=== PATIENT | female | born 1950 | race Caucasian/White ===

== ENCOUNTER 2025-03-10 01:52 | Inpatient (IN) | payer MEDICARE, OTHER, SELFPAY ==
--- OUTSIDE RECORDS SUMMARY | 2022-09-22 12:33 | XMS_ITS | Encounter Summary ---
Author Organization [facility] Address [address] [place] [address] Phone Care Team Providers Care Marketing Director Assisted Living Name Role Phone Ervin Cai MD Primary Care Pr ovider Encounter Details Date Type Department Care Team (Late st Contact Info) Description 09/22/2022 12:33 PM EDT Hospital Encounter [facility] [address] [place] [id number] Clarita Limon CNP [address] [place] [id number] [email or web address] Social History Tobacco Use Types Packs/Day Years Used Date Smoking Tobacco: Former Smokeless Tobacco: Never Alcohol Use Standard Drinks/Week Comments Yes 0 (1 standard drink = 0.6 oz pur e alcohol) Education Answer Date Recorded Are you interested in more education? Not on perla e 10/23/2022 Are you concerned about learning? Not on file 10/23/2022 No 10/23/2022 No 10/23/2022 Digital Access Answer Date Recorded No 11/23/2022 No 11/23/2022 Reliable internet access at home? Not on file 11/23/2022 Device with a working camera? Not on file Comments Unknown Sex and Gender Information Value Date Recorded Sex Assigned at Not on file Legal Sex Female 10:16 AM EST Gender Identity Not on file Sexual Orientation Not on file documented as of this encounter Plan of Treatment Upcoming Encounters Date Type Department Care Team (Late st Contact Info) Description 05/20/2025 10:00 AM EST Office Visit [facility] Rheumatology [address] [place] [address] Nidhi Valdez MD [address] [facility], [address] [place] [address] [email or web address] documented as of this encounter Procedures Procedure Name Priority Date/Time Associated Diagnosis Comments XR ANKLE 3 OR MORE VIEWS (LEFT) Urgent/patient waiting 09/22/2022 12:41 PM EDT Sprain of unspecified ligament of left ankle, initial encounter documented in this encounter Results * XR ANKLE 3 OR MORE VIEWS (LEFT) (09/22/2022 12:41 PM EDT) Anatomical Region Laterality Modality Ankle Left Computed Radiogr aphy 09/22/2022 12:4 7 PM EDT Impressions 09/22/2022 12:48 PM EDT No fracture or dislocation. Narrative 09/22/2022 12:48 PM EDT XR ANKLE 3 OR MORE VIEWS (LEFT) COMPARISON: None. FINDINGS: No fracture. Well-corticated osseous fragment along the lateral malleolus may be sequela from prior injury. Normal alignment. Symmetric ankle mortise. Normal joint spaces. No ankle effusion. Soft tissue swelling overlying the lateral malleolus. Procedure Note Brittaney Espinosa MD - 09/22/2022 XR ANKLE 3 OR MORE VIEWS (LEFT) COMPARISON: None. FINDINGS: No fracture. Well-corticated osseous fragment along the lateral malleolusmay be sequela from prior injury. Normal alignment. Symmetric anklemortise. Normal joint spaces. No ankle effusion. Soft tissue swellingoverlying the lateral malleolus. IMPRESSION: No fracture or dislocation. Clarita Limon HUMAN RESOURCES ASSISTANT MANAGER IMG XR LOWER EXTREMITY Karla l Result documented in this encounter Visit Diagnoses Not on filedocumented in this encounter Care Teams Marketing Director Assisted Living Relationship Specialty Start Date End Date Ervin Cai MD PCP - General Family Medicine 09/22/22 08/27/24 documented as of this encounter Additional Source Comments The information contained in this document represents components of the legal health record. It is not the complete legal health record.[facility]
[2025-03-10] VITALS (12 sets, daily range): BP systolic 113–172; BP diastolic 62–97; PULSE 81–115; RESP 14–23; TEMP 36.6–36.8; O2SAT 95–98; BMI 30.3
--- NOTE | ~2025-03-10 | CT_ITS ---
CLINICAL HISTORY: Fall with Head strike CT cervical spine without contrast Comparison: None provided Findings: Normal vertebral body alignment. There is multiple level degenerative disc, facet, and uncovertebral joint change. No acute fractures or dislocations. Visualized intracranial contents are unremarkable. Soft tissues of the neck are normal. Lung apices are clear. IMPRESSION: No acute findings. This document has been electronically signed by: Pio Charles MD on 03/10/2025 03:41:12
--- NOTE | ~2025-03-10 | CT_ITS ---
CLINICAL HISTORY: Fall w Head Strike and Lac CT head without contrast Comparison: None provided Findings: No intra-axial mass, midline shift, hydrocephalus, or acute hemorrhage. No significant atrophy-like change or white matter disease. The visualized paranasal sinuses and mastoid air cells are normal. The orbits are unremarkable. There is no acute fracture. IMPRESSION: 1. No acute intracranial findings. This document has been electronically signed by: Pio Charles MD on 03/10/2025 03:41:51
--- NOTE | 2025-03-10 01:55 | ECG_ITS ---
Test Reason : FALL Blood Pressure : */* mmHG Vent. Rate : 82 BPM Atrial Rate : 82 BPM P-R Int : 138 ms QRS Dur : 84 ms QT Int : 406 ms P-R-T Axes : 28 -11 9 degrees QTcB Int : 474 ms Normal sinus rhythm Possible Anterior infarct , age undetermined Abnormal ECG No previous ECGs available Referred By: Generic ED Physician Electronically Signed By: ESPERANZA ZAMAN MD
--- NOTE | 2025-03-10 02:15 | ED_ITS ---
HPI - Fall General Chief Complaint: Fall Stated Complaint: Fall with headstrike Time Seen by Provider: 03/10/25 01:59 Source: patient, family and EMS Mode of arrival: EMS Limitations: no limitations History of Present Illness ED Provider: Rex SANHDU HPI Narrative: The patient is a 74-year-old female presenting to the ED via EMS for evaluation of a fall with head strike. The patient reports she went out for her 's birthday yesterday evening, admits to drinking some alcohol but denies other substance use, patient returned home without complication and went to bed, patient reports developing a sharp stabbing muscle cramp in her left leg which woke her up, patient reports feeling associated nausea and got up quickly out of bed to go to the bathroom. Patient reports she next remembers her waking up on the floor stating he was calling an ambulance. The patient's reports he heard the patient fall to the ground, went to her side and found that she was bleeding, sat the patient up at which time the patient has suffered a syncopal episode with snoring respirations. The patient's has been lowered her back to the ground and activated EMS. The patient reportedly was awake and alert by time of EMS arrival. The patient denies any headache, dizziness, focal neurologic deficit, chest pain, shortness of breath, abdominal pain, or other acute somatic complaint prior to going to bed. The patient reports since the fall she has persistent nausea but without vomiting. The patient denies anticoagulation or other recent fall or blunt head trauma. Related Data Allergies Allergy/AdvReac Type Severity Reaction Status Date / Time lisinopril Allergy Cough Verified 03/10/25 02:09 Review of Systems 2 Review of Systems: Yes all other systems are reviewed and are negative PMFSH Social History Social History Alcohol intake: current Alcohol intake frequency: 0-2 drinks per day Smoked in Last 30 Days: No Use of substances other than those prescribed or required for medical reasons: No Advance Directives: Yes Advance Directives Information Provided: Yes Advance Directives on File: No Physical Exam 2 Exam: Exam: CONSTITUTIONAL: The patient appears non-toxic, well nourished and in no acute distress. Vital signs as documented. HEAD: There is a 4 cm laceration noted to the left occiput, with mild capillary bleeding, head is otherwise atraumatic, normocephalic. EYES: EOMs grossly intact, pupils equal, conjunctiva clear, no exudate. ENT: Nares patent, no discharge. Airway patent, no audible stridor, visible mucosa is pink and moist without noted lesions. NECK: Trachea is midline, no obvious masses or gross abnormalities. CHEST: Symmetric movement, normal appearance. LUNGS: LS present and CTAB, no w/r/r. Non-labored work of breathing. CARDIAC: Regular Rhythm, S1/S2 appreciated, no murmurs, rubs or gallops. ABDOMEN: Abdomen soft and non-tender x4 quadrants, no palpable masses or organomegaly. : Deferred. EXTREMITIES: Normal tone, moves all extremities spontaneously without reported pain. No obvious acute injury or deformity noted. NEURO: Alert and oriented x3, CN II-XII appear grossly intact. Cerebellar Functioning grossly intact. No obvious sensory or motor deficits. Speech clear and appropriate. PSYCH: normal affect, appropriate eye contact, fluid speech, with appropriate response to questioning. No reported suicidality or homicidality. SKIN: Warm, dry, color appropriate, normal turgor. No rashes noted. Vital Signs: Vital Signs: Last Vital Signs Pulse 81 03/10/25 02:09 Resp 17 03/10/25 02:09 BP 113/63 03/10/25 02:09 Pulse Ox 97 03/10/25 02:09 O2 Del Method Room Air 03/10/25 02:09 BMI result Body Mass Index 30.3 Course Reevaluation(s) Reevaluation #1: DR. Cerna's Progress note: signed out to me for disposition this is a 74-year-old female came in after had 2 separate syncopal episode witnessed by her , patient sustained scalp laceration has been repaired by PHOEBE Goodman, after discussing with the patient and the best to do is to admit for cardiac monitoring and workup for syncope. Time: 04:45 Medications Administered Generic Name Dose Route Start Last Admin Trade Name Freq PRN Reason Stop Dose Admin Lactated Ringer's 1,000 mls @ 999 mls/hr 03/10/25 04:15 03/10/25 04:30 Lr IV 03/10/25 05:15 999 mls/hr .Q1H1M KALEB Administration Discontinued Medications Generic Name Dose Route Start Last Admin Trade Name Freq PRN Reason Stop Dose Admin Sodium Chloride 1,000 mls @ 999 mls/hr 03/10/25 02:30 03/10/25 04:03 Ns IV 03/10/25 03:30 Infused .Q1H1M KALEB Infusion Lidocaine/Epinephrine 10 ml 03/10/25 03:46 03/10/25 04:30 Lidocaine Hcl 1%/Epi 1:100,000 10 Ml Vial INFILTRATI 03/10/25 03:47 10 ml ONCE ONE Administration Ondansetron HCl 4 mg 03/10/25 02:24 03/10/25 03:06 Ondansetron Hcl 4 Mg/2 Ml Vial IVPUSH 03/10/25 02:25 4 mg ONCE ONE Administration Ondansetron HCl 4 mg 03/10/25 04:07 03/10/25 04:30 Ondansetron Hcl 4 Mg/2 Ml Vial IVPUSH 03/10/25 04:08 4 mg ONCE ONE Administration Potassium Chloride 40 meq 03/10/25 04:07 03/10/25 04:29 Potassium Chloride Er 20 Meq Tab.Er.Prt PO 03/10/25 04:08 40 meq ONCE ONE Administration Procedures Laceration Laceration 1: Site: scalp Side (If applicable): right (Occipital) Size (cm): 4 Description: linear and clean Depth: simple, single layer Local Anesthetic: lidocaine 1% and with epi Amount of anesthesia used (mL): 6 Pre-repair: wound explored and deep structures intact Skin layer closed with: phuong Number of closing items:: 7 Technique: phuong Medical Decision Making Medical Decision Making MDM Narrative: 2:26 AM 03/10/2025 (Eligio SANDHU): The patient is a 74-year-old female presenting to the ED via EMS for evaluation of a fall with head strike. The patient reports she went out for her 's birthday yesterday evening, admits to drinking some alcohol but denies other substance use, patient returned home without complication and went to bed, patient reports developing a sharp stabbing muscle cramp in her left leg which woke her up, patient reports feeling associated nausea and got up quickly out of bed to go to the bathroom. Patient reports she next remembers her waking up on the floor stating he was calling an ambulance. The patient's reports he heard the patient fall to the ground, went to her side and found that she was bleeding, sat the patient up at which time the patient has suffered a syncopal episode with snoring respirations. The patient's has been lowered her back to the ground and activated EMS. The patient reportedly was awake and alert by time of EMS arrival. The patient denies any headache, dizziness, focal neurologic deficit, chest pain, shortness of breath, abdominal pain, or other acute somatic complaint prior to going to bed. The patient reports since the fall she has persistent nausea but without vomiting. The patient denies anticoagulation or other recent fall or blunt head trauma. Patient was found to have a 4 cm laceration to the left occiput, with mild capillary bleeding, no other open injury. There is no midline spinous process tenderness, crepitus, or step-off, neck demonstrates full nonpainful range of motion. No other acute findings. The patient's EKG shows no acute ischemia, we will obtain basic lab workup, cardiac workup, CT head and neck, and urinalysis. We will treat ongoing nausea with Zofran. 3:44 AM 03/10/2025 (Eligio SANDHU): Patient's CT head and neck is negative for acute pathology, laboratory evaluation shows no leukocytosis or significant anemia. The patient appears dehydrated with BUN 35, we will give additional IV fluid. The patient's potassium is also slightly low at 3.0, we will replete orally. Patient's laceration will be repaired with phuong. Repeat troponin will be obtained at 05:00. Patient's case will be signed out to Dr. Cerna. Admission/Observation Consideration of admission/observation: Escalation of care including admission/observation considered Lab Data 03/10/25 02:55 03/10/25 02:55 Labs: Lab Results 03/10/25 Range/Units 02:55 WBC 7.0 (4.8-10.8) X10*3/uL RBC 3.09 L (4.20-5.50) X10*6/uL Hgb 10.8 L (12.0-16.0) g/dl Hct 30.3 L (37.0-47.0) % MCV 98.1 H (80.0-98.0) fL MCH 35.0 H (27.0-33.0) pg MCHC 35.6 H (31.0-35.0) g/dl RDW 12.8 (11.0-16.0) % Plt Count 261 (160-400) X10*3/uL MPV 9.2 L (9.4-12.3) fL Immature Gran % (Auto) 0.4 (0.0-0.4) % Neut % (Auto) 62.5 (45-73) % Lymph % (Auto) 28.3 (20-40) % Fisher % (Auto) 7.0 (2-11) % Eos % (Auto) 1.4 (0-4) % Baso % (Auto) 0.4 (0-2) % Lymph # (Auto) 2.0 (1.2-4.9) X10*3/uL Fisher # (Auto) 0.5 (0.1-1.2) X10*3/uL Eos # (Auto) 0.1 (0.0-0.4) X10*3/uL Baso # (Auto) 0.0 (0.0-0.2) X10*3/uL Abs Immat Gran (auto) 0.03 (0.00-0.03) X10*3/uL Absolute Neuts (auto) 4.4 (2.0-8.3) x10*3/uL Absolute Nucleated RBC 0.000 (0.0-0.012) X10*3/uL Nucleated RBC % (auto) 0.0 (0.0-0.2) /100WBC PT 10.2 L (10.9-12.4) SEC INR 0.9 (0.9-1.1) Sodium 137 (135-145) mmol/L Potassium 3.0 L (3.3-5.1) mmol/L Chloride 102 (96-108) mmol/L Carbon Dioxide 21 L (22-29) mmol/L Anion Gap 17 (12-20) BUN 35 H (9-16) mg/dL Creatinine 1.33 (0.5-1.4) mg/dL Estim Creat Clear Calc 38.8 Estimated GFR 39 Random Glucose 98 (60-115) mg/dL Calcium 9.5 (8.4-10.2) mg/dL Total Bilirubin 0.2 (0.0-1.0) mg/dL AST 33 H (5-31) U/L ALT 37 H (0-31) U/L Alkaline Phosphatase 65 (39-117) U/L Troponin I High Sens < 2.7 (<3.5-17.0) ng/L Total Protein 6.9 (6.5-8.0) g/dL Albumin 4.2 (3.5-5.0) g/dL Independent Interpretation I performed an independent interpretation of an: EKG (EKG shows sinus rhythm with a rate of 82, no evidence of acute ischemia, no ST elevation, no ectopy. QTC 474. No old for comparison.) Radiology Impression Discussion of test interpretation with radiology: I have reviewed the radiologist's reading. Radiologist Impression: CLINICAL HISTORY: Fall with Head strike CT cervical spine without contrast Comparison: None provided Findings: Normal vertebral body alignment. There is multiple level degenerative disc, facet, and uncovertebral joint change. No acute fractures or dislocations. Visualized intracranial contents are unremarkable. Soft tissues of the neck are normal. Lung apices are clear. IMPRESSION: No acute findings. This document has been electronically signed by: Pio Charles MD on 03/10/2025 03:41:12 CLINICAL HISTORY: Fall w Head Strike and Lac CT head without contrast Comparison: None provided Findings: No intra-axial mass, midline shift, hydrocephalus, or acute hemorrhage. No significant atrophy-like change or white matter disease. The visualized paranasal sinuses and mastoid air cells are normal. The orbits are unremarkable. There is no acute fracture. IMPRESSION: 1. No acute intracranial findings. This document has been electronically signed by: Pio Charles MD on 03/10/2025 03:41:51 External Record Review External record reviewed: Outpatient record (No previous visits) Discharge Plan Discharge Clinical Impression: Concussion with loss of consciousness Qualifiers: Encounter type: initial encounter Qualified Code(s): S06.0X9A - Concussion with loss of consciousness of unspecified duration, initial encounter Syncope Qualifiers: Syncope type: unspecified Qualified Code(s): R55 - Syncope and collapse Laceration of scalp Qualifiers: Encounter type: initial encounter Qualified Code(s): S01.01XA - Laceration without foreign body of scalp, initial encounter Patient Disposition: Admitted As Inpatient Additional Instructions: Thank you for choosing [facility] for your care today. Based on your laboratory evaluation, your fainting episode this evening may have been secondary to dehydration. Thankfully your CT head and neck showed no evidence of any skull fracture, cervical spine fracture, or intracranial bleeding. Your evaluation showed no evidence of any acute cardiac, infectious, metabolic, renal, neurologic, or other dangerous cause for your fainting episode. Your fall today did result in a laceration of your scalp. The laceration was repaired with nonabsorbable phuong which will need to be removed in 5-7 days. Please return to the emergency department, go to a local urgent care, or follow- up with your primary care provider for removal of sutures. You may apply bacitracin to the laceration twice daily for the first 2-3 days. Then please keep the area clean and dry, but uncovered and exposed to the air to allow the laceration to heal. While it is perfectly acceptable to allow water to run over the phuong while showering, please do not swim, or submerge the laceration in standing water until the phuong are removed. You may take alternating (staggered) doses of ibuprofen 600mg and Tylenol 1000mg every 4 hours as needed for any additional pain. You can apply ice for 20 minutes every hour to reduce swelling. Please return to the emergency department if you develop any uncontrollable bleeding, re-opening of your wound, redness advancing >1-2 cm away from your wound, or white milky discharge from your wound. Please also return if you experience any other new or worsening symptoms or concerns. Your presentation today is also concerning for a possible concussion. A concussion is a bruise to your brain which may cause nausea, vomiting, headache, and difficulty concentrating/focusing. Similar to any other bruising, you must rest the injured area to prevent recurrent symptoms, reinjury, or other complications. In order to rest your brain, please avoid use of electronics such as cell phones, iPads, or TVs. Please avoid highly complex mental tasks/projects that require intense focus or concentration, and please avoid strenuous physical activity. Once your symptoms have resolved, you may slowly increase your activity level. If symptoms return please discontinue the activity which caused the recurrence of symptoms for 48 hours, before again attempting the same activity. You may not participate in any activities that are a high risk for recurrent head injury until you've returned to your baseline activity level without recurrence of your symptoms, plus one additional week. Please follow up with your primary care physician for re-evaluation, additional management of your symptoms, return to activity clearance, and continued preventative care. If you do not have a primary care physician, please call the [facility] at [phone] to establish a new primary care physician. While waiting to establish your new primary care physician, you can call our [facility] at [phone] for non-emergency needs. Print Language: Armenian
--- OUTSIDE RECORDS SUMMARY | 2025-03-10 02:57 | XMS_ITS | Clinical Summary ---
Author Organization [facility] Address [address] [place] [address] Care Team Providers Care Hand Blocker Name Role Phone Ervin Cai MD Primary Care Pr ovider Allergies Active Allergy Reactions Criticality Noted Date Comments Amlodipine 02/08/2024 Medications Medication Sig Dispensed Refills Start Date End Date Status alendronate (FOSAMAX) tablet 70 mg Take 1 tablet (70 mg total) by mouth every 7 days. Take with water on empty stomach/Nothing by mouth and do not lie down for next 30 minutes 0 Active losartan (COZAAR) 100 MG tablet Take 1 tablet (100 mg total) by mouth daily. 0 Active simvastatin (ZOCOR) tablet 40 mg Take 1 tablet (40 mg total) by mouth every night at bedtime. 0 Active omeprazole (PriLOSEC) 20 MG capsule Take 1 capsule (20 mg total) by mouth daily. 0 Active chlorthalidone (HYGROTON) 25 MG tablet Take 1 tablet (25 mg total) by mouth daily. 0 Active folic acid (FOLVITE) tablet 1 mg Take 1 tablet (1 mg total) by mouth daily. 90 tablet 0 02/08/2024 Active Social History Tobacco Use Types Packs/Day Years Used Date Smoking Tobacco: Former Cigarettes Smokeless Tobacco: Never Alcohol Use Standard Drinks/Week Comments Yes 0 (1 standard drink = 0.6 oz pur e alcohol) 1-2 glasses of wine nightly Sex and Gender Information Value Date Recorded Sex Assigned at Not on file Gender Identity Not on file Sexual Orientation Not on file Job Start Date Occupation Industry Not on file Not on file Not on file Last Filed Vital Signs Vital Sign Reading Time Taken Comments Blood Pressure 138/75 02/08/2024 9:50 AM EDT Pulse 91 02/08/2024 9:50 AM EDT Temperature 37.2 C (98.9 F) 02/08/2024 9:50 AM EDT Respiratory Rate - - Oxygen Saturation 99% 02/08/2024 9:50 AM EDT Inhaled Oxygen Concentration - - Weight 79.8 kg (176 lb) 02/08/2024 9:50 AM EDT Height - - Body Mass Index - - Plan of Treatment Health Maintenance Due Date Last Done Comments Hepatitis C Screening 1949 Depression Screening 1961 Preventative Health Evaluation 10/28/1967 Colon Cancer Screening (Colonoscopy) 1994 Fall Risk Assessment 2014 Osteoporosis Screening (DEXA Scan) 2014 RSV Adult > 60+ Yrs or (1 - 1-dose 75+ series) 2024 COVID-19 Vaccine ( season) 2025 03/28/2023, 01/29/2022, 04/17/2021, Additional history exists Influenza Vaccine (#1) 2025 , 03/26/2022, 03/04/2021, Additional history exists DTap / Tdap / Td (3 - Td or Tdap) 03/29/2032 03/29/2022, 10/08/2011, 04/04/2006 Pneumococcal Vaccine Completed 07/05/2017, 06/24/2016, 04/09/2016 Shingrix-Zoster Vaccine Completed 12/03/2021, 10/03 Hepatitis B Vaccines Aged Out No long er eligible based on patient's age to complete this topic RSV Ped < 20 months Aged Out No longe r eligible based on patient's age to complete this topic Care Teams Hand Blocker Relationship Specialty Start Date End Date Ervin Cai MD [address] [place] [address] PCP - General 12/14/23
--- OUTSIDE RECORDS SUMMARY | 2025-03-10 02:58 | XMS_ITS | Encounter Summary ---
Author Organization [facility] Address [address] [place] [address] [address] [place] [address] Phone Care Team Providers Care Tower Cleaner Name Role Phone Ervin Cai MD Primary Care Pr ovider Reason for Visit * Reason Onset Date Comments cortisone shot 01/10/2025 Encounter Details Date Type Department Care Team (Late st Contact Info) Description 01/10/2025 Telephone [employer] [facility] Rheumatology [address] [place] [address] Nidhi Valdez MD [address] [facility], [address] [place] [address] [email or web address] cortisone shot Social History Tobacco Use Types Packs/Day Years Used Date Smoking Tobacco: Former Smokeless Tobacco: Never Education Answer Date Recorded Are you interested [...] on file documented as of this encounter Progress Notes * Latisha Ovalles RN - 01/11/2025 9:39 AM EDT Yes, please offer appt today with Dr Victor. Thanks. * Patricia Salgado - 01/10/2025 11:48 AM EDT PT is requesting call back to set up a cortisone shot. Please advise. Central Support Statistician Applied (Please do not reply to this user; this inbox is not monitored.) Thank you. documented in this encounter Plan of Treatment Upcoming Encounters Date Type Department Care Team (Late st Contact Info) Description 05/20/2025 10:00 AM EST Office Visit [facility] Rheumatology [address] [place] [address] [place] [address] Nidhi Valdez MD [address] [place] [address], [address] [place] [address] [email or web address] documented as of this encounter Visit Diagnoses Not on filedocumented in this encounter Care Teams Tower Cleaner Relationship Specialty Start Date End Date Ervin Cai MD PCP - General Family Medicine 08/28/24 documented as of this encounter Additional Source Comments The information contained in this document represents components of the legal health record. It is not the complete legal health record.[facility]
--- OUTSIDE RECORDS SUMMARY | 2025-03-10 02:58 | XMS_ITS | Clinical Summary ---
Author Organization [facility] Address [address] [place] [address] Care Team Providers Care Air Pollution Specialist Name Role Phone Ervin Cai MD Primary Care Pr ovider Allergies Active Allergy Reactions Criticality Noted Date Comments Amlodipine Swelling Medium 06/13/2019 Lisinopril Cough High 06/13/2019 Medications alendronate (FOSAMAX) 70 mg tablet Take 1 tablet (70 mg total) by mouth every 7 (seven) days. 4 Active chlorthalidone (HYGROTON) 25 mg tabletIndication s:Primary hypertension Take 1 tablet (25 mg total) by mouth 1 (one) time each day. 90 each 1 5 025 Active losartan (COZAAR) 100 mg tabletIndication s:Primary hypertension Take 1 tablet (100 mg total) by mouth 1 (one) time each day. 90 tablet 1 5 Active omeprazole (PriLOSEC) [address] Robert ns:Gastroesophag eal reflux disease without esophagitis Take 1 capsule (20 mg total) by mouth 2 (two) times a day. 180 capsule 1 5 Active simvastatin (ZOCOR) 40 mg tabletIndication s:Hypercholester olemia Take 1 tablet (40 mg total) by mouth at bedtime. 90 tablet 1 5 Active polyethylene glycol (Golytely) 236-22.74-6.74 -5.86 gram solution Take 4L by mouth once for one dose. May substitue any PEG. Starting at 6PM the night before your procedure drink 1 8oz glasses at your own pace until you complete half of the gallon. Finish 2nd half of the gallon 5 hours before your procedure. 4000 mL 5 Active bisacodyL (DULCOLAX) 5 mg EC tablet Take 2 tablets by mouth right before beginning bowel prep. See instructions provided by the office 2 tablet 5 Active Lactobacillus acidophilus 10 billion cell capsule Take by mouth. Activ e VITAMIN B COMPLEX ORAL Take 1 capsule by mouth daily. Active calcium carbonate-vitami n D3 600 mg-25 mcg (1,000 unit) capsule Take by mouth. Activ e melatonin 10 mg capsule Take by mouth daily. 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 well controlled. Continue lifestyle mgt. Will update labs Orders: Hemoglobin A1c; Future Pneumothorax after biopsy 06/08/2024 Overview (06/08/2024): S/p chest tube insertion 06/29/2016 Insomnia 06/08/2024 Age-related osteoporosis wit hout current pathological fracture 06/08/2024 Assessment & Plan (12/06/2024 11:50 AM EDT): Continue daily ca/vitamin D supplement Continue alendronate 75mg weekly and endocrinology follow up Primary osteoarthritis of both knees 06/08/2024 Assessment & Plan (12/06/2024 11:50 AM EDT): Continue Rheumatology follow up at [facility]. See HPI Mass of left lung 06/08/2024 Overview (06/08/2024): Noted on CT of the abdomen, 04/19/2016. Referred her to CT surgery ( Dr. 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 Repeat CT scan 11/2016 with no residual or new mass Liver hemangioma 06/08/2024 Hypercholesterolemia 06/08/2024 Assessment & Plan (12/06/2024 11:50 AM EDT): Stable. Will update labs Orders: simvastatin (ZOCOR) 40 mg tablet; Take 1 tablet (40 mg total) by mouth at bedtime. Lipid panel with reflex to direct LDL; Future Hepatic steatosis 06/08/2024 Assessment & Plan (12/06/2024 11:50 AM EDT): Orders: MR Abdomen wo and w Contrast; Future Hepatic cyst 06/08/2024 Assessment & Plan (12/06/2024 11:50 AM EDT): Last MRI results are as above. Will update MRI per recommendations Orders: MR Abdomen wo and w Contrast; Future HTN (hypertension) 06/08/2024 Assessment & Plan (12/06/2024 11:50 AM EDT): Well controlled. Continue current meds Orders: chlorthalidone (HYGROTON) 25 mg tablet; Take 1 tablet (25 mg total) by mouth 1 (one) time each day. losartan (COZAAR) 100 mg tablet; Take 1 tablet (100 mg total) by mouth 1 (one) time each day. Elevated ferritin 06/08/2024 DJD (degenerative joint disease) of cervical spi ne 06/08/2024 Degenerative joint disease (DJD) of lumbar spine 06/08/2024 Compression fracture of L1 l umbar vertebra (CMS/HCC V24, CMS/HCC V28) 06/08/2024 GERD (gastroesophageal reflux disease) Assessment & Plan (12/06/2024 11:50 AM EDT): Stable. Continue omeprazole Orders: omeprazole (PriLOSEC) [address] capsule; Take 1 capsule (20 mg total) by mouth 2 (two) times a day. Anemia 06/08/2024 Bilateral nephrolithiasis 06/08/2024 Encounters Date Type Department Care Team Description 02/12/2025 9:42 AM EDT - 02/12/2025 11:59 PM EDT Hospital Encounter Radiology Department - [address] [phone] Hepatic cyst; Hepatic steatosis Discharge Disposition: Home or Self Care 01/04/2025 10:26 AM EDT Anesthesia Event [facility] Endoscopy [address] [place] [phone] Yevgeniy Hercules MD 01/04/2025 9:57 AM EDT - 01/04/2025 11:59 PM EDT Hospital Encounter [facility] Endoscopy [address] [place] [phone] Portia Lamar DO Dasilva, John E, MD Dickman, Christy L, BANKING CENTER MANAGER Hx of colonic polyps Discharge Disposition: Home or Self Care from Last 3 Months Immunizations Name Administration Dates Next Due COVID-19 (Moderna/Spikevax) 12yo and older 12/05/2024 COVID-19 (Pfizer/Comirnaty) 12yo and older 03/28/2023 Influenza Quadravalent, 0.5m l (Fluzone High-dose) 65yo and older 03/28/2023,03/26/2022,03/24/2022,03/04 Influenza trivalent, 0.5mL ( Fluzone High-dose) 65yo and older 03/04/2025,03/19/2024,03/26/2020,02/28 Pneumococcal conjugate 13 va lent (Prevnar 13, PCV13) 2mo and older 04/09/2016 Pneumococcal polysaccharide 23 valent (Pneumovax 23) 2yo and older 07/05/2017,07/05/2017,06/24/2016 RSV, bivalent, protein subun it RSVpreF, 0.5mL, Preservative Free (Arexvy) 60yo and older 03/18/2023 Td Tetanus diptheria (Tdvax) 7yo and older 03/29/2022,04/04/2006 Tdap Tetanus diptheria acell ular pertussis (Boostrix; Adacel) 7yo and older 10/08/2011 Zoster recombinant (Shingrix ) 19yo and older 12/03/2021,10/03/2021 Surgical History Surgery Date Site/Laterality Comments APPENDECTOMY age 18 PROCEDURE: HISTORICAL APPENDECTOMY; COMMENT: incidental EXCISION BENIGN SKIN LESION TRUNK / ARM / LEG PROCEDURE: MA EXCISION TUMOR SOFT TISSUE BACK/FLANK SUBQ <3CM; COMMENT: lipoma on back TUBAL LIGATION PROCEDURE: HISTORICAL TUBAL LIGATION TONSILLECTOMY age 11 PROCEDURE: HISTORICAL TONSILLECTOMY SALPINGOOPHORECTOMY age 18 PROCEDURE: MA LAPAROSCOPY W/RMVL ADNEXAL STRUCTURES; COMMENT: Tumor - benign COLONOSCOPY 11/07/19 15 PROCEDURE: HISTORICAL COLONOSCOPY; COMMENT: normal; repeat in 5 yrs OTHER SURGICAL HISTORY 04/2016 PROCEDURE: PART LUNG REMOVAL W/BRONCHOPLASTY; COMMENT: Left lung- Flores ESOPHAGOGASTRODUODENOSCOPY 03/28/20 18 PROCEDURE: MA ESOPHAGOGASTRODUODENOSCOPY TRANSORAL DIAGNOSTIC; COMMENT: esophageal erosions BACK SURGERY 02/28/20 24 PROCEDURE: HISTORICAL BACK SURGERY; COMMENT: L1 kyphoplasty, path: Negative for malignancy, Dr. Sandy Medical History Medical History Date Comments GERD (gastroesophageal reflux disease) 04/04/2006 DX:GERD (gastroesophageal reflux disease); COMMENT: nvr had EGD Osteoarthritis DX:Osteoarthriti s; COMMENT: Knees, bilaterally, left foot Stress fracture of foot 2016 DX:Stres s fracture of foot Essential hypertension 04/09/2016 DX:Essent ial hypertension Hypercholesteremia 04/16/2016 DX:Hyperchole steremia Hepatic steatosis 05/13/2023 DX:Hepatic mihaela atosis Bilateral nephrolithiasis 05/13/2023 DX:Kailash ateral nephrolithiasis Osteopenia 05/28/2016 DX:Osteopenia Bilateral primary osteoarthr itis of knee 10/16/2021 DX:Bilateral primary osteoar thritis of knee; COMMENT: Last Assessment & Plan: Gentle, regular exercise routine. Avoid falls, injuries, overuse. Congratulations on losing 10 pounds since January 2023 from 194 lbs down to 184 today. She may benefit from topical cream such as Arnica, Biofreeze, Aspercreme versus medicated patches such as s* Mass of left lung 04/19/2016 DX:Mass of lef t lung; COMMENT: Noted on CT of the abdomen, 04/19/2016. Referred her to CT surgery ( Dr. 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 Repeat CT scan 11/2016 with no residual or new mass Obesity due to energy imbalance 10/16/2021 DX:Obesity due to energy imbalance; COMMENT: Last Assessment & Plan: Congratulations on 8 pounds weight loss from 202 lbs down to 194 lbs - keep it off! Continue diligent portion control. Limit concentrated sugars, saturated fats and calories in the diet. Keep well-hydrated. If unable to achieve expected goal consider formal dietary/nu* Stiff neck 06/16/2023 DX:Stiff neck; C OMMENT: Last Assessment & Plan: Proper posture, neck support during the day and for nighttime. Avoid prolonged neck flexion and extension, sudden turns. Gentle, regular ROM, stretching and muscle strengthening exercises after warm pack or warm shower. She may benefit from gentle massage and topical creams/gels such as V* Family History Medical History Relation Name Comments Breast cancer Aunt pat Colon cancer Father 30's Diagnosed in ne s 30's, survived cancer. Rheumatoid Other cancer Maternal Grandmother ? bone cancer Ovarian cancer Neg Hx Pancreatic cancer Neg Hx Prostate cancer Neg Hx Uterine cancer Neg Hx Relation Name Status Comments Aunt pat Brother Alive 1/2 brother - p yuliet Daughter Alive healthy Father 30's (Age 83) colon canc er, form old age Maternal Grandfather (Age 70s) U K - prob old age Maternal Grandmother (Age 78) he art, bone cancer leg Mother (Age 101) old age Paternal Grandfather (Age 80s) U K - prob oldage Paternal Grandmother (Age 30s) C hild Sister Alive healthy Son (Age 3 days) 3 days old - congential abnormality Social History Tobacco Use Types Packs/Day Years Used Date Smoking Tobacco: Former Cigarettes Q uit: 06/27/1981 Smokeless Tobacco: Never Tobacco Cessation:Counseling Given: Not Answered Alcohol Use Standard Drinks/Week Comments Yes 5.8 (1 standard drink = 0.6 oz p ure alcohol) Interpersonal Safety Answer Date Record ed Physical Abuse 01/04/2025 Verbal Abuse 01/04/2025 Comments Unknown Sex and Gender Information Value Date Recorded Sex Assigned at Not on file Legal Sex Female 10:32 AM EST Gender Identity Female 12/26/2024 3:47 PM EDT Sexual Orientation Not on file Obstetrics History Last Filed Vital Signs Vital Sign Reading Time Taken Comments Blood Pressure 125/82 01/04/2025 11:04 AM EDT Pulse 86 01/04/2025 11:04 AM EDT Temperature 36.1 C (97 F) 01/04/2025 10:44 AM EDT Respiratory Rate 16 01/04/2025 11:04 AM EDT Oxygen Saturation 98% 01/04/2025 11:04 AM EDT Inhaled Oxygen Concentration - - Weight 79.4 kg (175 lb) 12/27/2024 12:00 PM EDT Height 162.6 cm (5' 4 ) 12/27/2024 12:00 PM EDT Body Mass Index 30.04 12/27/2024 12:00 PM EDT Plan of Treatment Upcoming Encounters Date Type Department Care Team (Late st Contact Info) Description 04/01/2025 11:20 AM EDT Appointment Radiology Department - [address] [phone] 04/09/2025 9:30 AM EDT Office Visit Endocrinology - [address] [phone] Ana Rivera PA [address] [place] [address] 06/07/2025 10:30 AM EST Office Visit [facility] - [address] [phone] Trinity Douglas PA [address] [place] [address] 11/25/2025 10:00 AM EDT Office Visit [facility] Hematology Oncology [address] [place] [phone] Nela Esposito PA [address] [place] [address] Health Maintenance Due Date Last Done Comments Social Influencers of Health Screening 08/09/2021 Medicare Annual Wellness Visit 06/07/2025 06/07/2024 Hypertension/CHF/CAD Annual BMP Blood Test 11/20/2025 11/20/2024, 06/07/2024, 01/06/2024, Additional history exists Falls Risk Assessment 01/04/2026 01/04/2025, 024 Colorectal Cancer Screening: Colonoscopy 01/05/2028 01/04/2025, 01/01/2020 Cholesterol Screening (Lipid Panel) 12/06/2029 12/06/2024, 11/11/2023 DTaP,Tdap,and Td Vaccines (4 - Td or Tdap) 03/29/2032 03/29/2022, 10/08/2011, 04/04/2006 Osteoporosis Screening (Bone Density Screening) 09/19/2034 09/19/2024, 11/19/2021, 12/27/2018 Hepatitis C Screening Completed 04/09/2016 Pneumococcal Vaccine: 50+ Years Completed 07/05/2017, 07/05/2017, 06/24/2016, Additional history exists Zoster Vaccines Completed 12/03/2021, 10/03/2021 RSV Immunization Adult Patients Completed 03/18/2023 Breast Cancer Screening Discontinued 03/15/20 24, 03/15/2024, 03/08/2023, Additional history exists COVID-19 Vaccine Completed 12/05/2024, , 03/28/2023, Additional history exists Depression Screening Completed 12/05/2024 Influenza Vaccine Completed 03/04/2025, , 03/28/2023, Additional history exists HIB Vaccines Aged Out No longer eligi ble based on patient's age to complete this topic HPV Vaccines Aged Out No longer eligi ble based on patient's age to complete this topic Hepatitis A Vaccines Aged Out No long er eligible based on patient's age to complete this topic Hepatitis B Vaccines Aged Out No long er eligible based on patient's age to complete this topic IPV Vaccines Aged Out No longer eligi ble based on patient's age to complete this topic MMR Vaccines Aged Out No longer eligi ble based on patient's age to complete this topic Meningococcal ACWY Vaccine Aged Out N o longer eligible based on patient's age to complete this topic Meningococcal B Vaccine Aged Out No l onger eligible based on patient's age to complete this topic RSV Immunization Patients Under 20 months Aged Out No longer eligible based on patient's age to complete this topic Varicella Vaccines Aged Out No longer eligible based on patient's age to complete this topic Procedures Procedure Name Priority Date/Time Associated Diagnosis Comments MR ABDOMEN WO AND W CONTRAST Routine 02/12/2025 11:19 AM EDT Hepatic cyst Hepatic steatosis COLONOSCOPY Routine 01/04/2025 10:43 AM EDT Hx of colonic polyps TISSUE EXAM Routine 01/04/2025 10:36 AM EDT Hx of colonic polyps LIPID PANEL WITH REFLEX TO DIRECT LDL Routine 12/06/2024 10:24 AM EDT Hypercholesterolemia COMPREHENSIVE METABOLIC PANEL Routine 11/20/2024 9:49 AM EDT Macrocytosis Elevated ferritin Encounter for therapeutic drug monitoring Personal history of ongoing treatment with alendronate (Fosamax) Senile osteoporosis BD BONE DENSITY DXA AXIAL SKELETON Routine 09/19/2024 11:00 AM EDT Other specified disorders of bone density and structure, unspecified site SCREENING MAMMOGRAPHY BI 2-VIEW BREAST INC CAD Routine 03/15/2024 11:02 AM EDT Encounter for screening mammogram for malignant neoplasm of breast from Last 3 Months or Most Recently Relevant to Health Maintenance Results * MR Abdomen wo and w Contrast (02/12/2025 11:19 AM EDT) Anatomical Region Laterality Modality Body Magnetic Resonan ce 02/12/2025 3:59 PM EDT Impressions 02/12/2025 4:24 PM EDT 1. The right hepatic lobe lesion is smaller compared to prior examination does not demonstrate enhancement. No further follow-up is needed. 2. Hepatic cysts 3. Enhancing lesion within the T11 vertebral body which likely represents hemangioma. -------- FINAL REPORT -------- Dictated By: Tim Potts Dictated Date: 02/12/2025 15:59 ET Assigned Physician: Tim Potts Reviewed and Electronically Signed By: Tim Potts Signed Date: 02/12/2025 16:24 ET Workstation ID: [id number] Transcribed By: Self Edit Transcribed Date: 02/12/2025 15:59 ET Narrative 02/12/2025 4:24 PM EDT MRI ABDOMEN WITH AND WITHOUT CONTRAST CLINICAL HISTORY: Follow-up for right hepatic lobe liver lesion COMPARISON: MRI abdomen from 11/25/[address] abdomen from 04/01/2023 TECHNIQUE: Multiplanar, multisequence imaging of the upper abdomen was performed before and after administration of20cc of Dotarem COMMENT: The lung bases are within normal limits. Diffuse dropout of signal on in/out phase images consistent with hepatic steatosis. Within the superior left hepatic lobe is a 1.2 cm T2 high signal, T1 low signal cyst. An inferior right hepatic lobe T2 high signal cyst is also present. Again seen is a 1.0 cm lesion within the right hepatic lobe adjacent to the gallbladder, with loss of signal on in/out phase images. The lesion is isointense on T2 images. No abnormal enhancement is identified. No intra or extrahepatic biliary dilatation. The common bile duct tapers normally. The gallbladder, spleen and pancreas demonstrate normal signal characteristics. No pancreatic ductal dilatation. Adrenal glands and kidneys are within normal limits. Visualized bowel is without obstruction. No significant lymphadenopathy. No free fluid in the upper abdomen. The major arteriovascular structures demonstrate normal signal characteristics. Subcutaneous soft tissues are within normal limits. Heterogeneous vertebral body marrow signal consistent with degenerative changes. Enhancing lesion within T11 likely represents vertebral body hemangioma. Procedure Note Tim Potts MD - 02/12/2025 MRI ABDOMEN WITH AND WITHOUT CONTRAST CLINICAL HISTORY: Follow-up for right hepatic lobe liver lesion COMPARISON: MRI abdomen from 11/25/[address] abdomen from 04/01/2023 TECHNIQUE: Multiplanar, multisequence imaging of the upper abdomen wasperformed before and after administration of20cc of Dotarem COMMENT: The lung bases are within normal limits. Diffuse dropout of signal on in/out phase images consistent with hepaticsteatosis. Within the superior left hepatic lobe is a 1.2 cm T2 highsignal, T1 low signal cyst. An inferior right hepatic lobe T2 high signalcyst is also present. Again seen is a 1.0 cm lesion within the righthepatic lobe adjacent to the gallbladder, with loss of signal on in/outphase images. The lesion is isointense on T2 images. No abnormalenhancement is identified. No intra or extrahepatic biliary dilatation.The common bile duct tapers normally. The gallbladder, spleen and pancreas demonstrate normal signalcharacteristics. No pancreatic ductal dilatation. Adrenal glands and kidneys are within normal limits. Visualized bowel is without obstruction. No significant lymphadenopathy.No free fluid in the upper abdomen. The major arteriovascular structures demonstrate normal signalcharacteristics. Subcutaneous soft tissues are within normal limits. Heterogeneousvertebral body marrow signal consistent with degenerative changes.Enhancing lesion within T11 likely represents vertebral body hemangioma. IMPRESSION: 1. The right hepatic lobe lesion is smaller compared to prior examinationdoes not demonstrate enhancement. No further follow-up is needed. 2. Hepatic cysts 3. Enhancing lesion within the T11 vertebral body which likely representshemangioma. -------- FINAL REPORT -------- Dictated By: Tim Potts Dictated Date: 02/12/2025 15:59 ET Assigned Physician: Tim Potts Reviewed and Electronically Signed By: Tim Potts Signed Date: 02/12/2025 16:24 ET Workstation ID: [id number] Transcribed By: Self Edit Transcribed Date: 02/12/2025 15:59 ET Ervin Cai MD Leo MRI PROCEDUR ES Final Result * COLONOSCOPY Anesthesia - MAC; [facility] ENDOSCOPY (01/04/2025 10:43 AM EDT) Anatomical Region Laterality Modality Endoscopy 01/04/2025 10:1 9 AM EDT Impressions 01/04/2025 10:44 AM EDT - Hemorrhoids found on perianal exam. - Two 6 to 14 mm polyps in the ascending colon, removed with a cold snare. Resected and retrieved. - One 3 mm polyp in the sigmoid colon, removed with a jumbo cold forceps. Resected and retrieved. - The examination was otherwise normal on direct and retroflexion views. Recommendation: - - Discharge patient to home. - High fiber diet. - Continue present medications. - Await pathology results. - Repeat colonoscopy for surveillance based on pathology results. Narrative 01/04/2025 10:[address] [facility] GI Patient Name: Justina Heller Procedure Date: 01/04/2025 10:19 AM Date of : 1950 Age: 74 Gender: Female Note Status: Finalized Attending MD: Portia Lamar DO, [id number] Procedure Date No Time: 01/04/2025 Procedure: Colonoscopy Indications: Screening for colorectal malignant neoplasm Providers: Portia Lamar DO Referring MD: Ervin Cai MD Medicines: Monitored Anesthesia Care Complications: No immediate complications. Estimated blood loss: Minimal. Estimated Blood Loss: Estimated blood loss was minimal. Procedure: Pre-Anesthesia Assessment: - - Prior to the procedure, a History and Physical was performed, and patient medications and allergies were reviewed. The patient is competent. The risks and benefits of the procedure and the sedation options and risks were discussed with the patient. All questions were answered and informed consent was obtained. Patient identification and proposed procedure were verified by the physician, the nurse, the anesthesiologist, the tamping machine operator road forms and the photonic laboratory technician in the pre-procedure area in the endoscopy suite. Mental Status Examination: alert and oriented. Airway Examination: normal oropharyngeal airway and neck mobility. Respiratory Examination: clear to auscultation. CV Examination: normal. Prophylactic Antibiotics: The patient does not require prophylactic antibiotics. Prior Anticoagulants: The patient has taken no anticoagulant or antiplatelet agents. ASA Grade Assessment: II - A patient with mild systemic disease. After reviewing the risks and benefits, the patient was deemed in satisfactory condition to undergo the procedure. The anesthesia plan was to use monitored anesthesia care (MAC). Immediately prior to administration of medications, the patient was re-assessed for adequacy to receive sedatives. The heart rate, respiratory rate, oxygen saturations, blood pressure, adequacy of pulmonary ventilation, and response to care were monitored throughout the procedure. The physical status of the patient was re-assessed after the procedure. After I obtained informed consent, the scope was passed under direct vision. Throughout the procedure, the patient's blood pressure, pulse, and oxygen saturations were monitored continuously.The Colonoscope was introduced through the anus and advanced to the cecum, identified by appendiceal orifice and ileocecal valve. The colonoscopy was performed without difficulty. The patient tolerated the procedure well. The quality of the bowel preparation was good. Findings: Hemorrhoids were found on perianal exam. A few small-mouthed diverticula were found in the sigmoid colon and descending colon. There was no evidence of diverticular bleeding. Two semi-sessile polyps were found in the ascending colon. The polyps were 6 to 14 mm in size. These polyps were removed with a cold snare. Resection and retrieval were complete. Verification of patient identification for the specimen was done. Estimated blood loss was minimal. A 3 mm polyp was found in the sigmoid colon. The polyp was sessile. The polyp was removed with a jumbo cold forceps. Resection and retrieval were complete. Estimated blood loss was minimal. The exam was otherwise without abnormality on direct and retroflexion views. Procedure Code(s): --- Professional --- 93007, Colonoscopy, flexible; with removal of tumor(s), polyp(s), or other lesion(s) by snare technique [id number], 59, Colonoscopy, flexible; with biopsy, single or multiple Diagnosis Code(s): --- Professional --- Z12.11, Encounter for screening for malignant neoplasm of colon K64.9, Unspecified hemorrhoids D12.2, Benign neoplasm of ascending colon D12.5, Benign neoplasm of sigmoid colon CPT copyright 2020 [employer]. All rights reserved. The codes documented in this report are preliminary and upon whip operator review may be revised to meet current compliance requirements. PORTIA Lamar DO 01/04/2025 10:43:45 AM This report has been signed electronically.Portia Lamar DO Number of Addenda: 0 Note Initiated On: 01/04/2025 10:19 AM Scope Withdrawal Time: 0 hours 6 minutes 20 seconds Scope In: 10:31:20 AM Scope Out: 10:42:21 AM Endoscopy Department at [facility] - [address] [place] [phone] Procedure Note Portia Lamar DO - 01/04/2025 St[address] [facility] GI Patient Name: Justnia Heller Procedure Date: 01/04/2025 10:19 AM Date of : 1950 Age: 74 Gender: Female Note Status: Finalized Attending MD: Portia Lamar DO, [id number] Procedure Date No Time: 01/04/2025 Procedure: Colonoscopy Indications: Screening for colorectal malignant neoplasm Providers: Portia Lamar DO Referring MD: Ervin Cai MD Medicines: Monitored Anesthesia Care Complications: No immediate complications. Estimated blood loss: Minimal. Estimated Blood Loss: Estimated blood loss was minimal. Procedure: Pre-Anesthesia Assessment: - - Prior to the procedure, a History and Physicalwas performed, and patient medications and allergieswere reviewed. The patient is competent. The risks and benefits of the procedure and the sedation optionsand risks were discussed with the patient. Allquestions were answered and informed consent was obtained. Patient identification and proposed procedure were verified by the physician, the nurse, the anesthesiologist, the tamping machine operator road forms and thetechnician in the pre-procedure area in the endoscopy suite. Mental Status Examination: alert and oriented.Airway Examination: normal oropharyngeal airway and neck mobility. Respiratory Examination: clear to auscultation. CV Examination: normal. Prophylactic Antibiotics: The patient does not requireprophylactic antibiotics. Prior Anticoagulants: The patient has taken no anticoagulant or antiplatelet agents. ASA Grade Assessment: II - A patient with mild systemic disease. After reviewing the risks and benefits,the patient was deemed in satisfactory condition to undergo the procedure. The anesthesia plan was touse monitored anesthesia care (MAC). Immediately priorto administration of medications, the patient was re-assessed for adequacy to receive sedatives. The heart rate, respiratory rate, oxygen saturations, blood pressure, adequacy of pulmonary ventilation,and response to care were monitored throughout the procedure. The physical status of the patient was re-assessed after the procedure. After I obtained informed consent, the scope was passed under direct vision. Throughout theprocedure, the patient's blood pressure, pulse, and oxygen saturations were monitored continuously.The Colonoscope was introduced through the anus and advanced to the cecum, identified by appendiceal orifice and ileocecal valve. The colonoscopy was performed without difficulty. The patient tolerated the procedure well. The quality of the bowel preparation was good. Findings: Hemorrhoids were found on perianal exam. A few small-mouthed diverticula were found in the sigmoid colon and descending colon. There was no evidence of diverticular bleeding. Two semi-sessile polyps were found in the ascending colon. The polyps were 6 to 14 mm in size. These polyps were removed with a cold snare. Resectionand retrieval were complete. Verification of patient identification for the specimen was done. Estimated blood loss was minimal. A 3 mm polyp was found in the sigmoid colon. Thepolyp was sessile. The polyp was removed with a jumbocold forceps. Resection and retrieval were complete. Estimated blood loss was minimal. The exam was otherwise without abnormality ondirect and retroflexion views. Procedure Code(s): --- Professional --- 04511, Colonoscopy, flexible; with removal of tumor(s), polyp(s), or other lesion(s) by snare technique [id number], 59, Colonoscopy, flexible; with biopsy,single or multiple Diagnosis Code(s): --- Professional --- Z12.11, Encounter for screening for malignantneoplasm of colon K64.9, Unspecified hemorrhoids D12.2, Benign neoplasm of ascending colon D12.5, Benign neoplasm of sigmoid colon CPT copyright 2020 [employer]. All rights reserved. The codes documented in this report are preliminary and upon whip operator reviewmay be revised to meet current compliance requirements. PORTIA Lamar DO 01/04/2025 10:43:45 AM This report has been signed electronically.Portia Lamar DO Number of Addenda: 0 Note Initiated On: 01/04/2025 10:19 AM Scope Withdrawal Time: 0 hours 6 minutes 20 seconds Scope In: 10:31:20 AM Scope Out: 10:42:21 AM Endoscopy Department at [facility] [address] [id number] IMPRESSION: - Hemorrhoids found on perianal exam. - Two 6 to 14 mm polyps in the ascending colon, removed with a cold snare. Resected andretrieved. - One 3 mm polyp in the sigmoid colon, removed witha jumbo cold forceps. Resected and retrieved. - The examination was otherwise normal on directand retroflexion views. Recommendation: - - Discharge patient to home. - High fiber diet. - Continue present medications. - Await pathology results. - Repeat colonoscopy for surveillance based on pathology results. Portia Willard DO GI~PROCEDURE ORDERABLES Final Re sult * Tissue exam (01/04/2025 10:36 AM EDT) Final Diagnosis A. Large Intestine, Right/Ascend ing Colon, polyps x2: - Tubular adenoma(s). B. Large Intestine, Sigmoid Colon, polyp x1: - Colonic mucosa with lymphoid aggregate. - Negative for dysplasia. 01/07/2025 9:57 AM EDT [facility] Gross Description A. Large Intestine, Right/Ascend ing Colon, polypX2: Labeled ascend colon polyp x 2 . Received in formalin are multiple irregular nicole mucosal tissue fragments, ranging from less than 0.1 cm to 0.6 cm in greatest dimension. The largest fragment is bisected. The specimen is wrapped in paper and entirely submitted in two cassettes, five pieces and multiple pieces, respectively , multiple levels on each slide. B. Large Intestine, Sigmoid Colon, polypX1: Labeled Sig colon polyp x 1 . Received in formalin is a 0.4 cm irregular nicole-pink mucosal tissue fragment which is wrapped in paper and submitted in toto in one cassette, one piece, multiple levels on one slide. MAI 01/07/2025 9:57 AM EDT [facility] Disclaimer Unless otherwise specified, all tissue is 10% NB formalin fixed and paraffin embedded. 01/07/2025 9:57 AM EDT [facility] Tissue Ascending colon structure / Unknown 01/04/2025 10:36 AM EDT 01/04/2025 11:10 AM EDT Tissue specimen (specimen) Sigmoid colon structure / Unknown 01/04/2025 10:40 AM EDT 01/04/2025 11:10 AM EDT us Portia Lamar DO LAB PATHOLOGY ORDERABLES Final R esult [facility] [address] [place] [address], [place] [phone] * Lipid panel with reflex to direct LDL (12/06/2024 10:24 AM EDT) Cholesterol 199 0 - 200 mg/dL LAB CHEMISTRY METHOD 12/06/2024 1:04 PM EDT [facility] Triglycerides 120 0 - 150 mg/dL LAB CHEMISTRY METHOD 12/06/2024 1:04 PM EDT [facility] HDL 92 >=40 mg/dL LAB CHEMISTRY METHOD 12/06/2024 1:04 PM EDT [facility] LDL Calculated 83 0 - 100 mg/dL LAB CHEMISTRY METHOD 12/06/2024 1:04 PM EDT [facility] VLDL Cholesterol Willard 24 mg/dL LAB CHEMISTRY METHOD 12/06/2024 1:04 PM EDT [facility] Non HDL Chol. (LDL+VLDL) 107 <145 mg/dL LAB CHEMISTRY METHOD 12/06/2024 1:04 PM EDT [facility] Chol/HDL Ratio 2.2 0.0 - 4.4 LAB CHEMISTRY METHOD 12/06/2024 1:04 PM EDT [facility] Blood Venous blood specimen / Unknown Venipuncture / Unknown 12/06/2024 10:24 AM EDT 12/06/2024 10:24 AM EDT us Ervin Cai MD LAB BLOOD ORDERA BLES Final Result [facility] [address] [place] [address], [place] [phone] * (ABNORMAL) Comprehensive metabolic panel (11/20/2024 9:49 AM EDT) [facility] Signature Sodium 138 133 - 145 mmol/L LAB CHEMISTRY METHOD 11/20/2024 12:48 PM [facility] Potassium 4.0 3.5 - 5.5 mmol/L LAB CHEMISTRY METHOD 11/20/2024 12:48 PM [facility] Chloride 105 96 - 110 mmol/L LAB CHEMISTRY METHOD 11/20/2024 12:48 PM [facility] CO2 28 21 - 32 mmol/L LAB CHEMISTRY METHOD 11/20/2024 12:48 PM [facility] Anion Gap 5 3 - 11 LAB CHEMISTRY METHOD 11/20/2024 12:48 PM [facility] Glucose 104(H) 70 - 100 mg/dL LAB CHEMISTRY METHOD 11/20/2024 12:48 PM [facility] BUN 20 5 - 25 mg/dL LAB CHEMISTRY METHOD 11/20/2024 12:48 PM [facility] Creatinine 0.98 0.50 - 1.10 mg/dL LAB CHEMISTRY METHOD 11/20/2024 12:48 PM [facility] eGFR 60 >=60 mL/min/1. 73m2 LAB CHEMISTRY METHOD 11/20/2024 12:48 PM [facility] Comment:Calculation based on the Chronic Kidney Disease Epidemiology Collaboration (CKD-EPI) equation refit without adjustment for race. BUN/Creatinine Ratio 20.4 LAB CHEMISTRY METHOD 11/20/2024 12:48 PM [facility] Calcium 8.7 8.5 - 10.5 mg/dL LAB CHEMISTRY METHOD 11/20/2024 12:48 PM [facility] AST (SGOT) 27 10 - 42 unit/L LAB CHEMISTRY METHOD 11/20/2024 12:48 PM EDT [facility] ALT (SGPT) 33 10 - 60 unit/L LAB CHEMISTRY METHOD 11/20/2024 12:48 PM EDT [facility] Alkaline Phosphatase 77 42 - 121 unit/L LAB CHEMISTRY METHOD 11/20/2024 12:48 PM EDT [facility] Total Protein 6.9 6.0 - 8.0 g/dL LAB CHEMISTRY METHOD 11/20/2024 12:48 PM EDT [facility] Albumin 3.7 3.2 - 5.0 g/dL LAB CHEMISTRY METHOD 11/20/2024 12:48 PM EDT [facility] Total Bilirubin 0.5 0.0 - 1.4 mg/dL LAB CHEMISTRY METHOD 11/20/2024 12:48 PM EDT [facility] Blood Venous blood specimen / Unknown Venipuncture / Unknown 11/20/2024 9:49 AM EDT 11/20/2024 11:26 AM EDT us Nidhi Valdez MD LAB BLOOD ORDERABLES Final Result [facility] [address] [place] [address], * BD Bone Density DXA Axial Skeleton (09/19/2024 11:00 AM EDT) Anatomical Region Laterality Modality Wrist, Hip, L-spine Bone Densito metry 09/19/2024 11:1 1 AM EDT Impressions 09/19/2024 11:15 AM EDT Impression: In the absence of trauma, vertebral fracture is considered presumptive evidence of osteoporosis. The [facility] Department of Internal Medicine recommends using National Osteoporosis Foundation (NOF) guidelines in treatment decisions related to osteoporosis. NOF guidelines suggest considering treatment for postmenopausal women and men aged 50 or older presenting with the following: History of hip or vertebral fracture. T-score = -2.5 (DXA) at the femoral neck, total hip, or spine, after appropriate evaluation to exclude secondary causes. Low bone mass (T-score between -1.0 and -2.5 at the femoral neck or spine) AND a 10-year probability of a hip fracture = 3% OR a 10-year probability of a major osteoporosis-related fracture = 20% based on the [place]-adapted WHO algorithm Please note that all treatment decisions require clinical judgment and consideration of individual patient factors, including patient preferences, co-morbidities, previous drug use, risk factors not captured in the FRAX model (e.g., frailty, falls, vitamin D deficiency, increased bone turnover, interval significant decline in bone density) and possible under- or over-estimation of fracture risk by FRAX. Optional alternative screening schedule based on fauzia Spencer., [facility] July 15, 2011 for patients with osteopenia (based on hip BMD T-score) is as follows: * advanced osteopenia (T scores -2.00 to -2.49), BMD testing every year * moderate osteopenia (T scores -1.50 to -1.99), BMD testing every 5 years mild osteopenia or normal BMD (T scores -1.50 and higher), BMD testing every 15 years -------- FINAL REPORT -------- Dictated By: Amber Smith Dictated Date: 09/19/2024 11:11 ET Assigned Physician: Amber Smith Reviewed and Electronically Signed By: Amber Smith Signed Date: 09/19/2024 11:15 ET Workstation ID: [id number] Transcribed By: Self Edit Transcribed Date: 09/19/2024 11:11 ET Narrative 09/19/2024 11:15 AM EDT BONE DENSITY (DEXA) Lumbar Spine T-score is 0.2. (SD relative to 20-29 y/o adult) Z-score is 2.7. (SD relative to age matched peers) This is considered normal by WHO criteria. Left Hip T-score is -1.4. Z-score is 0.7. This is considered osteopenia by WHO criteria. Lateral view of the spine demonstrates vertebroplasty of L1. Severe compression of L1 vertebral body. There is grade 1 spondylolisthesis at L4-5. Procedure Note Amber Smith MD - 09/19/2024 BONE DENSITY (DEXA) Lumbar Spine T-score is 0.2. (SD relative to 20-29 y/o adult) Z-score is 2.7. (SD relative to age matched peers) This is considered normal by WHO criteria. Left Hip T-score is -1.4. Z-score is 0.7. This is considered osteopenia by WHO criteria. Lateral view of the spine demonstrates vertebroplasty of L1. Severecompression of L1 vertebral body. There is grade 1 spondylolisthesis atL4-5. IMPRESSION: Impression: In the absence of trauma, vertebral fracture is considered presumptiveevidence of osteoporosis. The [facility] Department of Internal Medicine recommendsusing National Osteoporosis Foundation (NOF) guidelines in treatmentdecisions related to osteoporosis. NOF guidelines suggest consideringtreatment for postmenopausal women and men aged 50 or older presentingwith the following: History of hip or vertebral fracture. T-score = -2.5 (DXA) at the femoral neck, total hip, or spine, afterappropriate evaluation to exclude secondary causes. Low bone mass (T-score between -1.0 and -2.5 at the femoral neck or spine)AND a 10-year probability of a hip fracture = 3% OR a 10-year probabilityof a major osteoporosis-related fracture = 20% based on the [place]-adapted WHOalgorithm Please note that all treatment decisions require clinical judgment andconsideration of individual patient factors, including patientpreferences, co-morbidities, previous drug use, risk factors not capturedin the FRAX model (e.g., frailty, falls, vitamin D deficiency, increasedbone turnover, interval significant decline in bone density) and possibleunder- or over-estimation of fracture risk by FRAX. Optional alternative screening schedule based on fauzia Spencer., [place] 2011 for patients with osteopenia (based on hip BMD T-score)is as follows: * advanced osteopenia (T scores -2.00 to -2.49), BMD testing every year * moderate osteopenia (T scores -1.50 to -1.99), BMD testing every 5years mild osteopenia or normal BMD (T scores -1.50 and higher), BMD testingevery 15 years -------- FINAL REPORT -------- Dictated By: Amber Smith Dictated Date: 09/19/2024 11:11 ET Assigned Physician: Amber Smith Reviewed and Electronically Signed By: Amber Smith Signed Date: 09/19/2024 11:15 ET Workstation ID: [id number] Transcribed By: Self Edit Transcribed Date: 09/19/2024 11:11 ET us Ana SANDHU IMG DXA PROCEDURES Final Re sult * SCREENING MAMMOGRAPHY BI 2-VIEW BREAST INC CAD (03/15/2024 11:02 AM EDT) Anatomical Region Laterality Modality Radiographic Kira ging 03/08/2023 10:1 8 AM EDT Narrative 03/15/2024 6:21 PM EDT This is a summary report. The complete report is available in the patient's medical record. If you cannot access the medical record, please contact the sending organization for a detailed fax or copy. Exam: Screening mammogram Findings: Digital bilateral full-field screening mammography is performed with tomosynthesis and interpreted with the aid of computer-aided detection. Comparison is made with 03/08/2023 and as far back as 02/20/2020. Breast parenchyma is composed of scattered fibroglandular densities. No new suspicious mass, architectural distortion, or suspicious calcifications. Impression: No mammographic evidence of malignancy. BI-RADS 1 - negative [address] [address] Procedure Note Bernarda Hdz MD - 04/11/2024 This is a summary report. The complete report is available in thepatient's medical record. If you cannot access the medical record, pleasecontact the sending organization for a detailed fax or copy. Exam: Screening mammogram Findings: Digital bilateral full-field screening mammography is performedwith tomosynthesis and interpreted with the aid of computer-aideddetection. Comparison is made with 03/08/2023 and as far back as02/20/2020. Breast parenchyma is composed of scattered fibroglandular densities. Nonew suspicious mass, architectural distortion, or suspiciouscalcifications. Impression: No mammographic evidence of malignancy. BI-RADS 1 - negative [facility] [address], [place] [id number] Ervin Cai MD IMG XR PROCEDURE S Final Result from Last 3 Months or Most Recently Relevant to Health Maintenance Insurance [facility]ARE [facility] Advance Directives Documents on File Type Date Recorded Patient Underwriting Clerk Expl anation Advance Directives and Livin g Will 09/19/2024 10:28 AM Care Teams Air Pollution Specialist Relationship Specialty Start Date End Date Ervin Cai MD [address] [facility] [place], [place] PCP - General Internal Medicine 03/29/22
--- OUTSIDE RECORDS SUMMARY | 2025-03-10 02:58 | XMS_ITS ---
Author Name [facility] Organization Unknown Care Team Organization Name Specialty Phone Email Start Date End Da te [facility] ACO 02/13/2025 [facility] MARGRET DEY [email or web address] 06/08/2023 4 [facility] Trinity Fraga Primary Care 03/03/202301/25 4 [facility] OLI Mcghee Primary Care 05/04/202201/25 4
--- OUTSIDE RECORDS SUMMARY | 2025-03-10 02:58 | XMS_ITS | Clinical Summary ---
Author Organization [facility] Address [address] [place] [address] [place] [phone] Phone Care Team Providers Care Plate Cutter Name Role Phone Ervin Cai MD Primary Care Pr ovider Allergies Active Allergy Reactions Criticality Noted Date Comments Amlodipine 10/09/2021 Lisinopril 10/09/2021 Medications chlorthalidone (HYGROTON) 25 MG tablet Take 25 mg by mouth daily. 2 Active simvastatin (ZOCOR) 40 MG tablet Take 40 mg by mouth nightly at bedtime. 2 Active TURMERIC ORAL Take by mouth. Active calcium carbonate/vitamin D3 (CALCIUM+D ORAL) Take by mouth. Active b complex vitamins capsule Take 1 capsule by mouth daily. Active L.acid/L.casei/B.bi f/B.vika/FOS (PROBIOTIC BLEND ORAL) Take by mouth. Active losartan (COZAAR) 100 MG tablet Take 100 mg by mouth daily. 3 Active omeprazole (PRILOSEC) 20 MG capsule Take 1 capsule by mouth 2 (two) times a day. 4 Active alendronate (FOSAMAX) 70 MG tablet Take 70 mg by mouth every 7 days. Active melatonin 10 mg Cap Take by mouth nightly at bedtime. Active MAGNESIUM ORAL Take by mouth nightly at bedtime. Active folic acid (FOLVITE) 1 MG tablet Take 1 mg by mouth daily. Active celecoxib (CELEBREX) 100 MG capsuleIndications: Bilateral primary osteoarthritis of knee Take 1 capsule (100 mg total) by mouth 2 (two) times a day as needed for pain (specific location in comments) (joints). 60 capsule 5 5 Active Active Problems Problem Noted Date Diagnosed Date Age-related osteoporosis wit hout current pathological fracture 12/04/2024 Assessment & Plan (12/04/2024 4:24 PM EDT): Continue proper calcium vitamin D supplementation, daily weightbearing exercises, fall and fracture prevention strategies and weekly oral Fosamax (alendronate) due to the history of nontraumatic L1 compression fracture in 2022-s/p vertebroplasty. Closed compression fracture of body of L1 verteb ra 02/16/2024 Assessment & Plan (02/16/2024 12:58 PM EDT): She is scheduled for interventional correction at [facility] on 02/28/2024. Overweight (BMI 25.0-29.9) 02/16/2024 Assessment & Plan (08/29/2024 4:52 PM EST): Continue diligent portion control. Limit concentrated sugars, saturated fats and calories in the diet. Keep well-hydrated. If unable to achieve expected goal consider formal dietary/nutritional support. Assessment & Plan (02/16/2024 12:59 PM EDT): Congratulations on losing 7 pounds from 180 on 10/17/2023 down to 173 today and keep it off. Continue diligent portion control. Limit concentrated sugars, saturated fats and calories in the diet. Keep well-hydrated. If unable to achieve expected goal consider formal dietary/nutritional support. Stiff neck 06/16/2023 Assessment & Plan (06/16/2023 10:07 AM EST): Proper posture, neck support during the day and for nighttime. Avoid prolonged neck flexion and extension, sudden turns. Gentle, regular ROM, stretching and muscle strengthening exercises after warm pack or warm shower. She may benefit from gentle massage and topical creams/gels such as Voltaren, Arnica, Biofreeze versus medicated patches such as Salonpas or IcyHot patch. Examples of exercises with pictures and detailed instructions printed for her to utilize daily at home after warm pack or warm shower. Other specified anemias 06/16/2023 Bilateral primary osteoarthritis of knee 022 Assessment & Plan (11/22/2024 12:35 PM EDT): Procedure: After an informed oral consent, under sterile conditions using Ethyl chloride spray for local anesthesia I have injected 3rd of 3 weekly 16 mg Synvisc into Right knee from medial approach uneventfully. Details of post-procedure care were explained to the patient in the office and given in writing. Provider: Nidhi Valdez MD Patient: Justina Heller : 1950 Date: 11/22/2024 Procedure: After an informed oral consent, under sterile conditions using Ethyl chloride spray for local anesthesia I have injected 3rd of 3 weekly 16 mg Synvisc into Left knee from medial approach uneventfully. Details of post-procedure care were explained to the patient in the office and given in writing. Provider: Nidhi Valdez MD Patient: Justina Heller : 1950 Date: 11/22/2024 OFFICE SUPPLY Assessment & Plan (11/14/2024 1:59 PM EDT): Procedure: After an informed oral consent, under sterile conditions using Ethyl chloride spray for local anesthesia I have injected 2nd of 3 weekly 16 mg Synvisc into Right knee from infero-lateral approach uneventfully. Details of post-procedure care were explained to the patient in the office and given in writing. Provider: Nidhi Valdez MD Patient: Justina Heller : 1950 Date: 11/14/2024 Procedure: After an informed oral consent, under sterile conditions using Ethyl chloride spray for local anesthesia I have injected 2nd of 3 weekly 16 mg Synvisc into Left knee from infero-lateral approach uneventfully. Details of post-procedure care were explained to the patient in the office and given in writing. Provider: Nidhi Valdez MD Patient: Justina Heller : 1950 Date: 11/14/2024 OFFICE SUPPLY Assessment & Plan (11/07/2024 10:04 AM EDT): Procedure: After an informed oral consent, under sterile conditions using Ethyl chloride spray for local anesthesia I have injected 1st of 3 weekly 16 mg Synvisc into Right knee from infero-medial approach uneventfully. Details of post-procedure care were explained to the patient in the office and given in writing. Provider: Nidhi Valdez MD Patient: Justina Heller : 1950 Date: 11/07/2024 Procedure: After an informed oral consent, under sterile conditions using Ethyl chloride spray for local anesthesia I have injected 1st of 3 weekly 16 mg Synvisc into Left knee from infero-medial approach uneventfully. Details of post-procedure care were explained to the patient in the office and given in writing. Provider: Nidhi Valdez MD Patient: Justina Heller : 1950 Date: 11/07/2024 OFFICE SUPPLY Assessment & Plan (08/29/2024 4:25 PM EST): Procedure: After an informed written consent, under sterile conditions using Ethyl chloride spray for local anesthesia I have injected 40 mg Kenalog and 2 cc 1% Lidocaine into Right knee from medial approach uneventfully. Details of post-procedure care were explained to the patient in the office and given in writing. Provider: Nidhi Valdez MD Patient: Justina Heller : 1950 Date: 08/29/2024 Assessment & Plan (05/03/2024 10:36 AM EST): Gentle, regular exercise routine. Avoid falls, injuries, overuse. Additional benefit may be achieved from warm pool therapy such as at [facility] versus [facility] in [place] She is aware that injections may stop working and in that case may need to consider other options such as viscosupplementation versus if necessary surgical approach. Procedure: After an informed oral consent, under sterile conditions using Ethyl chloride spray for local anesthesia I have injected 3rd weekly vial 16 mg Synvisc into Right knee from lateral approach uneventfully. Details of post-procedure care were explained to the patient in the office and given in writing. Provider: Nidhi Valdez MD Patient: Justina Heller : 1950 Date: 05/03/2024 Procedure: After an informed oral consent, under sterile conditions using Ethyl chloride spray for local anesthesia I have injected 3rd weekly vial 16 mg Synvisc into Left knee from lateral approach uneventfully. Details of post-procedure care were explained to the patient in the office and given in writing. Provider: Nidhi Valdez MD Patient: Justina Hellre : 1950 Date: 05/03/2024 OFFICE SUPPLY Assessment & Plan (04/26/2024 10:51 AM EDT): Gentle, regular exercise routine. Avoid falls, injuries, overuse. Additional benefit may be achieved from warm pool therapy such as at [facility] versus [facility] She is aware that injections may stop working and in that case may need to consider other options such as viscosupplementation versus if necessary surgical approach. Procedure: After an informed oral consent, under sterile conditions using Ethyl chloride spray for local anesthesia I have injected 2nd weekly vial 16 mg Synvisc into Right knee from medial approach uneventfully. Details of post-procedure care were explained to the patient in the office and given in writing. Provider: Nidhi Valdez MD Patient: Justina Heller : 1950 Date: 04/26/2024 Procedure: After an informed oral consent, under sterile conditions using Ethyl chloride spray for local anesthesia I have injected 2nd weekly vial 16 mg Synvisc into Left knee from medial approach uneventfully. Details of post-procedure care were explained to the patient in the office and given in writing. Provider: Nidhi Valdez MD Patient: Justina Heller : 1950 Date: 04/26/2024 OFFICE SUPPLY Assessment & Plan (04/19/2024 10:54 AM EDT): Gentle, regular exercise routine. Avoid falls, injuries, overuse. Additional benefit may be achieved from warm pool therapy such as at [facility] versus [facility] She is aware that injections may stop working and in that case may need to consider other options such as viscosupplementation versus if necessary surgical approach. Procedure: After an informed oral consent, under sterile conditions using Ethyl chloride spray for local anesthesia I have injected 1st vial 16 mg Synvisc into Right knee from infero-medial approach uneventfully. Details of post-procedure care were explained to the patient in the office and given in writing. Provider: Nidhi Valdez MD Patient: Justina Heller : 1950 Date: 04/19/2024 Procedure: After an informed oral consent, under sterile conditions using Ethyl chloride spray for local anesthesia I have injected 1st vial 16 mg Synvisc into Left knee from infero-medial approach uneventfully. Details of post-procedure care were explained to the patient in the office and given in writing. Provider: Nidhi Valdez MD Patient: Justina Heller : 1950 Date: 04/19/2024 Assessment & Plan (02/16/2024 12:57 PM EDT): Gentle, regular exercise routine. Avoid falls, injuries, overuse. Additional benefit may be achieved from warm pool therapy such as at [facility] versus [facility] in [place] On her request I agreed to inject both knees with Kenalog today. She is aware that injections may stop working and in that case may need to consider other options such as viscosupplementation versus if necessary surgical approach. Procedure: After an informed oral consent, under sterile conditions using Ethyl chloride spray for local anesthesia I have injected 40 mg Kenalog and 2 cc 1% Lidocaine into Right knee from infero-medial approach uneventfully. Details of post-procedure care were explained to the patient in the office and given in writing. Provider: Nidhi Valdez MD Patient: Justina Heller : 1950 Date: 02/16/2024 Procedure: After an informed oral consent, under sterile conditions using Ethyl chloride spray for local anesthesia I have injected 40 mg Kenalog and 2 cc 1% Lidocaine into Left knee from infero-lateral approach uneventfully. Details of post-procedure care were explained to the patient in the office and given in writing. Provider: Nidhi Valdez MD Patient: Justina Heller : 1950 Date: 02/16/2024 Assessment & Plan (10/17/2023 12:04 PM EDT): Gentle, regular exercise routine. Avoid falls, injuries, overuse. Congratulations on losing 4 pounds since May 2023 from 184 lbs down to 180 today. She may benefit from topical cream such as Arnica, Biofreeze, Aspercreme versus medicated patches such as salonpas, icy hot patch 2-3 times daily and if necessary at bedtime x 3 weeks. Try to decrease sulindac frequency from nightly to every other night at least shortly after cortisone injection. Additional benefit may be achieved from warm pool therapy such as at [facility] versus [facility] in [place] On her request I agreed to inject Right knee with Kenalog today. She is aware that injections may stop working and in that case may need to consider other options such as viscosupplementation versus if necessary surgical approach. Procedure: After an informed oral consent, under sterile conditions using Ethyl chloride spray for local anesthesia I have injected 40 mg Kenalog and 2 cc 1% Lidocaine into Right knee from infero-medial approach uneventfully. Details of post-procedure care were explained to the patient in the office and given in writing. Provider: Nidhi Valdez MD Patient: Justina Heller : 1950 Date: 10/17/2023 Assessment & Plan (06/16/2023 9:49 AM EST): Gentle, regular exercise routine. Avoid falls, injuries, overuse. Congratulations on losing 10 pounds since January 2023 from 194 lbs down to 184 today. She may benefit from topical cream such as Arnica, Biofreeze, Aspercreme versus medicated patches such as salonpas, icy hot patch 2-3 times daily and if necessary at bedtime x 3 weeks. Try to decrease sulindac frequency from nightly to every other night at least shortly after cortisone injection. Additional benefit may be achieved from warm pool therapy such as at [facility] versus [facility] in [place] On her request I agreed to inject both knees with Kenalog today. She is aware that injections may stop working and in that case may need to consider other options such as viscosupplementation versus if necessary surgical approach. Procedure: After an informed oral consent, under sterile conditions using Ethyl chloride spray for local anesthesia I have injected 40 mg Kenalog and 2 cc 1% Lidocaine into Right knee from infero-lateral approach uneventfully. Details of post-procedure care were explained to the patient in the office and given in writing. Provider: Nidhi Valdez MD Patient: Justina Heller : 1950 Date: 06/16/2023 Procedure: After an informed oral consent, under sterile conditions using Ethyl chloride spray for local anesthesia I have injected 40 mg Kenalog and 2 cc 1% Lidocaine into Left knee from infero-medial approach uneventfully. Details of post-procedure care were explained to the patient in the office and given in writing. Provider: Nidhi Valdez MD Patient: Justina Heller : 1950 Date: 06/16/2023 Assessment & Plan (02/07/2023 11:35 AM EDT): Gentle, regular exercise routine. Avoid falls, injuries, overuse. Work on decreasing her body weight into ideal range for her height. She may benefit from topical cream such as Arnica, Biofreeze, Aspercreme versus medicated patches such as salonpas, icy hot patch 2-3 times daily and if necessary at bedtime x 3 weeks. Try to decrease sulindac frequency from nightly to every other night at least shortly after cortisone injection. Additional benefit may be achieved from warm pool therapy such as at [facility] versus [facility] in [place] On her request I agreed to inject both knees with Kenalog today. She is aware that injections may stop working and in that case may need to consider other options such as viscosupplementation versus if necessary surgical approach. Procedure: After an informed oral consent, under sterile conditions using Ethyl chloride spray for local anesthesia I have injected 40 mg Kenalog and 2 cc 1% Lidocaine into Right knee from infero-medial approach uneventfully. Details of post-procedure care were explained to the patient in the office and given in writing. Provider: Nidhi Valdez MD Patient: Justina Heller : 1950 Date: 02/07/2023 Procedure: After an informed oral consent, under sterile conditions using Ethyl chloride spray for local anesthesia I have injected 40 mg Kenalog and 2 cc 1% Lidocaine into Left knee from medial approach uneventfully. Details of post-procedure care were explained to the patient in the office and given in writing. Provider: Nidhi Valdez MD Patient: Justina Heller : 1950 Date: 02/07/2023 In the past Euflexxa was helpful but she could not remember details - I gave her info on it to explore it if interested On her request pamphlet on another option instead Sulindac printed : Meloxicam. Assessment & Plan (11/09/2022 11:42 AM EDT): Gentle, regular exercise routine. Avoid falls, injuries, overuse. Work on decreasing her body weight into ideal range for her height. She may benefit from topical cream such as Arnica, Biofreeze, Aspercreme versus medicated patches such as salonpas, icy hot patch 2-3 times daily and if necessary at bedtime x 3 weeks. Try to decrease sulindac frequency from nightly to every other night at least shortly after cortisone injection. Additional benefit may be achieved from warm pool therapy such as at [facility] versus [facility] in [place] On her request I agreed to inject both knees with Kenalog today. She is aware that injections may stop working and in that case may need to consider other options such as viscosupplementation versus if necessary surgical approach. Procedure: After an informed oral consent, under sterile conditions using Ethyl chloride spray for local anesthesia I have injected 40 mg Kenalog and 2 cc 1% Lidocaine into Right knee from medial approach uneventfully. Details of post-procedure care were explained to the patient in the office and given in writing. Provider: Nidhi Valdez MD Patient: Justina Heller : 1950 Date: 10/14/2022 Procedure: After an informed oral consent, under sterile conditions using Ethyl chloride spray for local anesthesia I have injected 40 mg Kenalog and 2 cc 1% Lidocaine into Left knee from medial approach uneventfully. Details of post-procedure care were explained to the patient in the office and given in writing. Provider: Nidhi Valdez MD Patient: Justina Heller : 1950 Date: 10/14/2022 In the past Euflexxa was helpful but she could not remember details - I gave her info on it to explore it if interested On her request pamphlet on another option instead Sulindac printed : Meloxicam. Assessment & Plan (06/14/2022 11:30 AM EST): Gentle, regular exercise routine. Avoid falls, injuries, overuse. Work on decreasing her body weight into ideal range for her height. She may benefit from topical cream such as Arnica, Biofreeze, Aspercreme versus medicated patches such as salonpas, icy hot patch 2-3 times daily and if necessary at bedtime x 3 weeks. Try to decrease sulindac frequency from nightly to every other night at least shortly after cortisone injection. Additional benefit may be achieved from warm pool therapy such as at [facility] versus [facility] in [place] On her request I agreed to inject Right knee with cortisone today. She is aware that injections may stop working and in that case may need to consider other options such as viscosupplementation versus if necessary surgical approach. Procedure: After an informed oral consent, under sterile conditions using Ethyl chloride spray for local anesthesia I have injected 40 mg DepoMedrol and 2 cc 1% Lidocaine into Right knee from infero-medial approach uneventfully. Details of post-procedure care were explained to the patient in the office and given in writing. Provider: Nidhi Valdez MD Patient: Justina Heller : 1950 Date: 06/14/2022 In the past Euflexxa was helpful but she could not remember details - I gave her info on it to explore it if interested On her request pamphlet on another option instead Sulindac printed : Meloxicam. Assessment & Plan (03/09/2022 1:29 PM EDT): Joint protection, energy conservation. Gentle, regular exercise routine. Avoid falls, injuries, overuse. Work on decreasing her body weight into ideal range for her height. She may benefit from topical cream such as Arnica, Biofreeze, Aspercreme versus medicated patches such as salonpas, icy hot patch 2-3 times daily and if necessary at bedtime x 3 weeks. Try to decrease sulindac frequency from nightly to every other night at least shortly after cortisone injection. Additional benefit may be achieved from warm pool therapy such as at [facility] versus [facility] On her request I agreed to inject Right knee with cortisone today. She is aware that injections may stop working and in that case may need to consider other options such as viscosupplementation versus if necessary surgical approach. Procedure: After an informed oral consent, under sterile conditions using Ethyl chloride spray for local anesthesia I have injected 40 mg DepoMedrol and 2 cc 1% Lidocaine into Right knee from infero-medial approach uneventfully. Details of post-procedure care were explained to the patient in the office and given in writing. Provider: Nidhi Valdez MD Patient: Justina Heller : 1950 Date: 02/15/2022 In the past Euflexxa was helpful but she could not remember details - I gave her info on it to explore it if interested On her request pamphlet on another option instead Sulindac printed : Meloxicam. Assessment & Plan (10/16/2021 10:55 PM EDT): Joint protection, energy conservation. Gentle, regular exercise routine. Avoid falls, injuries, overuse. Work on decreasing her body weight into ideal range for her height. She may benefit from topical cream such as Arnica, Biofreeze, Aspercreme versus medicated patches such as salonpas, icy hot patch 2-3 times daily and if necessary at bedtime x 3 weeks. Additional benefit may be achieved from warm pool therapy such as at [facility] versus [facility] On her request I agreed to inject both knees with cortisone since it worked well for her in the past. She is aware that injections may stop working and in that case may need to consider other options such as viscosupplementation versus if necessary surgical approach. Procedure: After an informed oral consent, under sterile conditions using Ethyl chloride spray for local anesthesia I have injected 40 mg DepoMedrol and 2 cc 1% Lidocaine into Right knee from infero- medial approach uneventfully. Details of post-procedure care were explained to the patient in the office and given in writing. Provider: Nidhi Valdez MD Patient: Justina Heller : 1950 Date: 10/16/2021 Procedure: After an informed oral consent, under sterile conditions using Ethyl chloride spray for local anesthesia I have injected 40 mg DepoMedrol and 2 cc 1% Lidocaine into Left knee from medial approach uneventfully. Details of post-procedure care were explained to the patient in the office and given in writing. Provider: Nidhi Valdez MD Patient: Justina Heller : 1950 Date: 10/16/2021 NSAID long-term use 10/16/2021 Assessment & Plan (02/07/2023 11:35 AM EDT): Take the lowest dose, with least frequency, for shortest time. Remember to take it always with food. Favor topical over oral preparations. Assessment & Plan (10/14/2022 11:29 AM EDT): Take the lowest dose, with least frequency, for shortest time. Remember to take it always with food. Favor topical over oral preparations. Assessment & Plan (06/14/2022 11:32 AM EST): Take the lowest dose, with least frequency, for shortest time. Remember to take it always with food. Favor topical over oral preparations. Assessment & Plan (02/15/2022 10:12 AM EDT): Avoid late, large, spicy meals. Keep headboard elevated at 45 angle for nighttime. Assessment & Plan (10/16/2021 10:53 PM EDT): Take the lowest dose, with least frequency, for shortest time. Remember to take it always with food. Favor topical over oral preparations. On statin therapy 10/16/2021 Assessment & Plan (02/15/2022 10:13 AM EDT): Monitor for muscle tenderness, swelling and weakness Assessment & Plan (10/16/2021 10:53 PM EDT): Monitor for muscle tenderness, swelling and weakness Gastroesophageal reflux disease without esophagi tis 10/16/2021 Assessment & Plan (02/16/2024 11:37 AM EDT): Avoid late, large, spicy meals. Keep headboard elevated at 45 angle for nighttime. Continue daily omeprazole as prescribed. Assessment & Plan (10/17/2023 12:05 PM EDT): Avoid late, large, spicy meals. Keep headboard elevated at 45 angle for nighttime. Continue daily omeprazole as prescribed. Assessment & Plan (06/16/2023 10:08 AM EST): Avoid late, large, spicy meals. Keep headboard elevated at 45 angle for nighttime. Continue pantoprazole as instructed and educated not to take any nonsteroidal anti-inflammatories such as sulindac, Aleve or Advil etc. Assessment & Plan (02/07/2023 11:35 AM EDT): Avoid late, large, spicy meals. Keep headboard elevated at 45 angle for nighttime. Assessment & Plan (10/14/2022 11:29 AM EDT): Avoid late, large, spicy meals. Keep headboard elevated at 45 angle for nighttime. Assessment & Plan (06/14/2022 11:32 AM EST): Avoid late, large, spicy meals. Keep headboard elevated at 45 angle for nighttime. Carefully continue Protonix 20 mg daily. Assessment & Plan (02/15/2022 10:12 AM EDT): Avoid late, large, spicy meals. Keep headboard elevated at 45 angle for nighttime. Assessment & Plan (10/16/2021 10:52 PM EDT): Avoid late, large, spicy meals. Keep headboard elevated at 45 angle for nighttime. Carefully continue Protonix and try to limit frequency of sulindac and if possible stop periodically Other insomnia 10/16/2021 Assessment & Plan (10/16/2021 10:51 PM EDT): Principles of sleep hygiene reviewed and strongly encouraged. Listen to relaxation tapes prior to bed rest. Alternatively may consider CALM to sleep with [employer] apps from [employer]. If waking up gasping for air formal sleep study may be necessary. Pneumothorax after biopsy 06/29/2016 Overview (09/22/2022): S/p chest tube insertion 06/29/2016 Osteopenia 05/28/2016 Assessment & Plan (11/07/2024 10:05 AM EDT): She has known spine and hip osteopenia according to BMD from April 2022 at [facility] interval study after April 2024 during F/U with PCP in late October 2023. Continue proper calcium vitamin D supplementation, daily weightbearing exercises, fall and fracture prevention strategies. Assessment & Plan (08/29/2024 4:25 PM EST): She has known spine and hip osteopenia according to BMD from April 2022 at [facility] interval study after April 2024 during F/U with PCP in late October 2023. Continue proper calcium vitamin D supplementation, daily weightbearing exercises, fall and fracture prevention strategies. Assessment & Plan (10/17/2023 12:26 PM EDT): She has known spine and hip osteopenia according to BMD from April 2022 at [facility] interval study after April 2024 during F/U with PCP in late October 2023. Continue proper calcium vitamin D supplementation, daily weightbearing exercises, fall and fracture prevention strategies. 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 Referred her to CT surgery ( Dr. 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 Repeat CT scan 11/2016 with no residual or new mass Hypercholesteremia 04/16/2016 Essential hypertension 04/09/2016 Osteoarthritis of both knees 04/09/2016 Resolved Problems Problem Noted Date Diagnosed Date Resolved Date Encounter for monitoring alendronate therapy 11/14/2024 Assessment & Plan (11/14/2024 1:59 PM EDT): Continue taking it on an empty stomach with full glass 8 ounces plain water and remain upright for at least 30 minutes every 7 days. Assessment & Plan (11/07/2024 10:05 AM EDT): Continue taking it on an empty stomach with full glass 8 ounces plain water and remain upright for at least 30 minutes every 7 days. Assessment & Plan (08/29/2024 4:26 PM EST): Continue taking it on an empty stomach with full glass 8 ounces plain water and remain upright for at least 30 minutes every 7 days. Assessment & Plan (02/16/2024 12:58 PM EDT): Continue taking it on an empty stomach with full glass 8 ounces plain water and remain upright for at least 30 minutes every 7 days. Anemia 06/16/2023 08/29/2024 Assessment & Plan (06/16/2023 10:09 AM EST): Educated to avoid any NSAIDs and monitor for weakness and any sign of blood in the stool. Eat well-balanced nutritionally diet rich in iron and vitamin C. Seek medical attention if abdominal pain, fatigue or signs of blood in the stool. Get CBC prior to next visit-order in [facility]. Class 1 obesity due to exces s calories without serious comorbidity with body mass index (BMI) of 31.0 to 31.9 in adult 02/07/202310/2024 Assessment & Plan (02/07/2023 11:35 AM EDT): Portion control. Limit concentrated sugars, saturated fats and calories in the diet. Keep well-hydrated. If unable to achieve expected goal consider formal dietary/nutritional support. Class 1 obesity due to exces s calories without serious comorbidity with body mass index (BMI) of 32.0 to 32.9 in adult 10/16/202110/2024 Assessment & Plan (02/08/2023 11:53 AM EDT): Congratulations on 8 pounds weight loss from 202 lbs down to 194 lbs - keep it off! Continue diligent portion control. Limit concentrated sugars, saturated fats and calories in the diet. Keep well-hydrated. If unable to achieve expected goal consider formal dietary/nutritional support. Assessment & Plan (10/14/2022 11:30 AM EDT): Portion control. Limit concentrated sugars, saturated fats and calories in the diet. Keep well-hydrated. If unable to achieve expected goal consider formal dietary/nutritional support. Assessment & Plan (06/14/2022 11:32 AM EST): Congratulations on 3 pounds weight loss from 202 lbs down to 199 lbs-keep it off. Continue diligent portion control encouraged to bring her body weight into ideal range for her height. Limit concentrated sugars, saturated fats and calories in the diet. Keep well-hydrated. If unable to achieve expected goal consider formal dietary/nutritional support. Assessment & Plan (02/15/2022 10:11 AM EDT): Portion control. Limit concentrated sugars, saturated fats and calories in the diet. Keep well-hydrated. If unable to achieve expected goal consider formal dietary/nutritional support. Assessment & Plan (10/16/2021 10:48 PM EDT): Diligent portion control encouraged to bring her body weight into ideal range for her height. Limit concentrated sugars, saturated fats and calories in the diet. Keep well-hydrated. If unable to achieve expected goal consider formal dietary/nutritional support. Encounters Date Type Department Care Team Description 01/14/2025 Telephone [facility] [address] [place] [address] [place] [address] Desirae Victor MD Referral 01/11/2025 2:00 PM EDT Office Visit [facility] [place] [address] Desirae Victor MD Bilateral primary osteoarthritis of knee (Primary Dx); NSAID long-term use 01/11/2025 Telephone [facility] Rheumatology [address] [place] [address] Desirae Victor MD upcoming injections 01/10/2025 Telephone [facility] Rheumatology [address] [place] [address] Nidhi Valdez MD cortisone shot from Last 3 Months Immunizations No known immunizations Family History Medical History Relation Comments Colon cancer Father Rheumatoid arthritis Father Relation Status Comments Father Social History Tobacco Use Types Packs/Day Years Used Date Smoking Tobacco: Former Smokeless Tobacco: Never Tobacco Cessation:Counseling Given: Not Answered Alcohol Use Standard Drinks/Week Comments Yes 0 [...] on file Sexual Orientation Not on file Last Filed Vital Signs Vital Sign Reading Time Taken Comments Blood Pressure 132/66 01/11/2025 1:55 PM EDT Pulse 104 01/11/2025 1:55 PM EDT Temperature 37.3 C (99.1 F) 09/22/2022 12:22 PM EDT Respiratory Rate 20 09/22/2022 12:22 PM EDT Oxygen Saturation 96% 01/11/2025 1:55 PM EDT Inhaled Oxygen Concentration - - Weight 79.4 kg (175 lb) 01/11/2025 1:55 PM EDT Height 167.6 cm (5' 5.98 ) 11/22/2024 12:02 PM E DT Body Mass Index 28.26 11/22/2024 12:02 PM EDT Plan of Treatment Upcoming Encounters Date Type Department Care Team (Late st Contact Info) Description 05/20/2025 10:00 AM EST Office Visit [facility] Rheumatology [address] [place] [address] Nidhi Valdez MD [address] [facility], [address] [place] [address] Health Maintenance Due Date Last Done Comments DEPRESSION SCREENING 1961 SMOKING Hx and SMOKELESS TOBACCO SCREENING 1962 HEPATITIS C SCREENING 10/28/1967 COLOGUARD 1994 COLONOSCOPY 1994 COLORECTAL CANCER SCREENING 1994 FIT TEST 1994 FOBT 1994 SIGMOIDOSCOPY 1994 VIRTUAL COLONOSCOPY 1994 POTASSIUM LEVEL 06/01/2024 06/01/2023, 072 11/2022, 09/20/2022, Additional history exists INFLUENZA VACCINE (#1) 2025 , 03/28/2023, 03/26/2022, Additional history exists BLOOD PRESSURE 07/14/2025 01/11/2025 CREATININE LEVEL 11/20/2025 11/20/2024, 11/2022, 01/19/2023, Additional history exists LIPID PANEL 12/06/2029 12/06/2024, 09/17/2021 Adult Td,Tdap Booster 03/29/2032 03/29/2022 , 10/08/2011, 04/04/2006 PNEUMOCOCCAL VACCINES (50+ years) Completed 07/05/2017, 06/24/2016, 04/09/2016 ZOSTER VACCINES Completed 12/03/2021, 10/03/2021 RSV VACCINE Completed 03/18/2023 OSTEOPOROSIS SCREENING INITIAL (ONE-TIME) Completed 09/19/2024 COVID-19 VACCINE Completed 12/05/2024, , 03/28/2023, Additional history exists HEPATITIS A VACCINES Aged Out No long er eligible based on patient's age to complete this topic HIB VACCINES Aged Out No longer eligi ble based on patient's age to complete this topic MENINGOCOCCAL VACCINES (ACWY) Aged Out No longer eligible based on patient's age to complete this topic MENINGOCOCCAL VACCINES (B) Aged Out N o longer eligible based on patient's age to complete this topic Medical Devices Not on file Procedures Procedure Name Priority Date/Time Associated Diagnosis Comments COMPREHENSIVE METABOLIC PANEL Routine 11/20/2024 12:07 PM EDT Encounter for monitoring alendronate therapy Age-related osteoporosis without current pathological fracture COMPREHENSIVE METABOLIC PANEL Routine 06/01/2023 9:15 AM EST Bilateral primary osteoarthritis of knee NSAID long-term use from Last 3 Months or Most Recently Relevant to Health Maintenance Results * Comprehensive metabolic panel (11/20/2024 12:07 PM EDT) Only the most recent of2 resultswithin the time period is included. Blood us Nidhi Valdez MD LAB BLOOD ORDERABLES Fin al Result EXTERNAL NON-INTERFACED REF LAB from Last 3 Months or Most Recently Relevant to Health Maintenance Insurance MEDICARE PART A & B [employer] MEDICARE SUPPLEMENT MEDICARE PART A & B MEDICARE SUPPLEMENT ([place]) [address] [place] [address] MEDICARE PART A & B MEDICARE PART A & B Member Subscriber Plan / Payer ( fective 2017-Present) Name:Justina Heller Member ID:[id number] Relation to Subscriber:Self Name:Justina Heller Subscriber ID:[id number] Payer ID:[id number] Group ID:Not on file Type:Medicare Address: [employer] [id number] MEDICARE PART A & B [employer] MEDICARE SUPPLEMENT MEDICARE PART A & B MEDICARE PART A & B [employer] MEDICARE SUPPLEMENT MEDICARE PART A & B [facility] MEDICARE SUPPLEMENT MEDICARE PART A & B [facility] MEDICARE SUPPLEMENT Care Teams Plate Cutter Relationship Specialty Start Date End Date Ervin Cai MD PCP - General Family Medicine 08/28/24 Additional Source Comments The information contained in this document represents components of the legal health record. It is not the complete legal health record.[facility]
[2025-03-10 03:00] LABS: Hematocrit 30.3 % (37.0-47.0); Hemoglobin 10.8 g/dl (12.0-16.0); Imm Gran Abs Auto 0.03 X10*3/uL (0.00-0.03); Imm Gran Pct Auto 0.4 % (0.0-0.4); Lymphocytes Absolute Auto 2.0 X10*3/uL (1.2-4.9); MANUAL DIFF FLAG NO; Mean Corpuscular HGB Conc 35.6 g/dl (31.0-35.0); Mean Corpuscular Hemoglobin 35.0 pg (27.0-33.0); Mean Corpuscular Volume 98.1 fL (80.0-98.0); NRBC Abs Auto 0.000 X10*3/uL (0.0-0.012); NRBC Pct Auto 0.0 /100WBC (0.0-0.2); Platelet Count 261 X10*3/uL (160-400); Red Blood Count 3.09 X10*6/uL (4.20-5.50); White Blood Count 7.0 X10*3/uL (4.8-10.8)
[2025-03-10 03:06] LABS: INTERNATIONAL NORM RATIO 0.9 (0.9-1.1); Prothrombin Time 10.2 SEC (10.9-12.4)
[2025-03-10 03:13] LABS: Alanine Aminotransferase 37 U/L (0-31); Albumin Level 4.2 g/dL (3.5-5.0); Alkaline Phosphatase 65 U/L (39-117); Anion Gap 17 (12-20); Aspartate Amino Transferase 33 U/L (5-31); Blood Urea Nitrogen 35 mg/dL (9-16); Calcium 9.5 mg/dL (8.4-10.2); Carbon Dioxide 21 mmol/L (22-29); Chloride 102 mmol/L (96-108); Creatinine Clr Calc Pharmacy 38.8; Estimated Glomerular Filt Rate 39; Potassium 3.0 mmol/L (3.3-5.1); Sodium 137 mmol/L (135-145); Total Protein 6.9 g/dL (6.5-8.0)
[2025-03-10 03:21] LABS: Troponin-I High Sensitivity < 2.7 ng/L (<3.5-17.0)
[2025-03-10] MEDS: Potassium Chloride ER 20 MEQ TAB.ER.PRT 40 MEQ PO (04:29)
[2025-03-10] MEDS: Lactated Ringers 1,000 ML 999 ML IV (04:30)
[2025-03-10] MEDS: Lidocaine HCl 1%/Epi 1:100,000 10 ML VIAL INFILTRATI (04:30)
[2025-03-10 05:22] LABS: Troponin-I High Sensitivity < 2.7 ng/L (<3.5-17.0)
--- NOTE | 2025-03-10 06:15 | PM.IMHP ---
History of Present Illness Date of Service: 03/10/25 Attending physician on admission: Jamal Boland Chief Complaint: syncope pt is a 74 yo f with a pmhx significant for HTN, who presented to the ED after a fall, headstrike with syncopal episode x2. the pt reports she was consuming etoh last night and went to bed. woke with a muscle cramp in the L leg adn nausea and went to get out of bed quickly and syncopized. the pt's found her on the ground right after the fall, bleeding from the head and sat her upright. she was responsive and then syncopized again with snoring respirations. she does not recall the first episode but does recall the second. no seizure-like activity witnessed, no urinary incontinence. the pt's called EMS. upon EMS arrival the pt was responsive. she has not had any further episodes. she now had an occipital headache with mild nausea. Review of Systems Constitutional: Constitutional: Denies body ache(s), Denies chills, Denies fatigue, Denies fever(s) and Reports headache(s) Eyes: Eyes: Denies change in vision ENT: Reports headache(s), Denies nasal congestion and Denies sore throat Cardiovascular: Cardiovascular: Denies chest pain, Denies rapid heart rate, Denies leg edema, Denies lightheadedness and Denies dyspnea Respiratory: Respiratory: Denies chest congestion, Denies cough, Denies dyspnea and Denies wheezing Gastrointestinal: Gastrointestinal: Denies abdominal pain, Denies constipation, Denies diarrhea, Denies nausea and Denies vomiting Genitourinary: Genitourinary: Denies dysuria and Denies urinary urgency Musculoskeletal: Musculoskeletal: Denies myalgias Integumentary/Breasts: Skin/Breast: Denies rash Neurologic: Denies confusion and Reports headache(s) Psychiatric: Psychiatric: Denies confusion Endocrine: Endocrine: Denies fatigue Hematologic/Lymphatic: Hematologic/Lymphatic: Denies easy bleeding and Denies easy bruising Allergic/Immunologic: Allergic/Immunologic: Denies wheezing [facility] Medical History (Updated 03/10/25 @ 06:48 by Claire Oliver PA-C) HLD (hyperlipidemia) GERD (gastroesophageal reflux disease) HTN (hypertension) Functional capacity: independent ambulation Social History Alcohol intake: current Alcohol intake frequency: 0-2 drinks per day Patient Tobacco Use Status: Never used Tobacco Smoked in Last 30 Days: No Use of substances other than those prescribed or required for medical reasons: No Advance Directives: Yes Advance Directives Information Provided: Yes Advance Directives on File: No Nutrition Risks: No Nutritional Risk Narrative: no smoking, drinks 1 glass of wine daily, no drug use Meds Allergies Allergy/AdvReac Type Severity Reaction Status Date / Time lisinopril Allergy Cough Verified 03/10/25 02:09 Active Medications: Current Medications Acetaminophen (Acetaminophen 325 Mg Tablet) 975 mg PO Q6H PRN PRN Reason: Pain, Mild 1-3,fever,headache Calcium Carbonate (Calcium Carbonate 750 Mg Tab.Chew) 750 mg PO Q4H PRN PRN Reason: Heartburn Enoxaparin Sodium (Enoxaparin Sodium 40 Mg/0.4 Ml Syringe) 40 mg SUBCUT Q24H KALEB Magnesium Hydroxide (Milk Of Magnesia 30 Ml Oral.Susp) 30 ml PO DAILY PRN PRN Reason: Constipation Melatonin (Melatonin 3 Mg Tablet) 6 mg PO BEDTIME PRN PRN Reason: Insomnia Ondansetron HCl (Ondansetron Hcl 4 Mg/2 Ml Vial) 4 mg IVPUSH Q8H PRN PRN Reason: Nausea and Vomiting Oxycodone HCl (Oxycodone Hcl Immed Release 5 Mg Tablet) 5 mg PO Q6H PRN PRN Reason: Pain, Severe (Pain Scale 7-10) Sodium Chloride (0.9 % Sodium Chloride Flush 3 Ml Syringe) 3 ml IVFLUSH QSHIFT KALEB Tramadol HCl (Tramadol Hcl 50 Mg Tablet) 50 mg PO Q6H PRN PRN Reason: Pain, Moderate(Pain Scale 4-6) Physical Exam Vital Signs and Narrative: Vital Signs: Last Vital Signs Temp 97.9 F 03/10/25 04:51 Pulse 94 03/10/25 04:51 Resp 18 03/10/25 04:51 BP 149/74 H 03/10/25 04:51 Pulse Ox 98 03/10/25 04:51 O2 Del Method Room Air 03/10/25 04:51 BMI result Body Mass Index 30.3 General: AOx3, no acute distress Resp: CTA bilaterally, no wheezing or crackles CVS: S1, S2, RRR GI: +BS, NT, no distention Skin: Warm, dry Neuro: Cranial nerves II-XII grossly intact bilaterally. Motor grossly intact bilaterally. strength and motor intact bilateral upper and lower extremities. 7 phuong on scalp. bite wound on tongue Extremities: No pitting edema Psych: Appropriate affect Const: General: No confusion Orientation/consciousness: No confusion Neuro: General: No confusion Results Labs 03/10/25 02:55 03/10/25 02:55 Labs: Laboratory Results - last 24 hr 03/10/25 02:55 MCV 98.1 H MCH 35.0 H MCHC 35.6 H RDW 12.8 Plt Count 261 MPV 9.2 L Immature Gran % (Auto) 0.4 Neut % (Auto) 62.5 Lymph % (Auto) 28.3 Pierce % (Auto) 7.0 Eos % (Auto) 1.4 Baso % (Auto) 0.4 Lymph # (Auto) 2.0 Pierce # (Auto) 0.5 Eos # (Auto) 0.1 Baso # (Auto) 0.0 Abs Immat Gran (auto) 0.03 Absolute Neuts (auto) 4.4 Absolute Nucleated RBC 0.000 Nucleated RBC % (auto) 0.0 PT 10.2 L INR 0.9 Anion Gap 17 Estim Creat Clear Calc 38.8 Estimated GFR 39 Random Glucose 98 Calcium 9.5 Total Bilirubin 0.2 AST 33 H ALT 37 H Alkaline Phosphatase 65 Total Protein 6.9 Albumin 4.2 Assessment and Plan (1) Syncope: Qualifiers: Syncope type: unspecified Qualified Code(s): R55 - Syncope and collapse Status: Acute (2) Concussion with loss of consciousness: Qualifiers: Encounter type: initial encounter Qualified Code(s): S06.0X9A - Concussion with loss of consciousness of unspecified duration, initial encounter Status: Acute (3) Laceration of scalp: Qualifiers: Encounter type: initial encounter Qualified Code(s): S01.01XA - Laceration without foreign body of scalp, initial encounter Status: Acute (4) Hypokalemia: Status: Acute (5) Anemia: Status: Acute (6) Class 1 obesity: Status: Acute Plan pt is a 74 yo f with a pmhx significant for HTN, who presented to the ED after a fall, headstrike with syncopal episode x2. syncope with concussion with LOC/scalp lac - syncopal episode witnessed by pt's after inital syncopal episode. possible othrostatic syncopal episode followed by concussion - EKG with NSR - trop negative - head CT/c-spine CT negative - UA not yet done - hgb 10.8 hct 30.3 MCV high - check iron panel, B12, folate - monitor on tele - orthostatics - echo - cardiology consult - consider neurology consult hypokalemia - K 3.0 - given 40meq PO - check mag - repeat BMP anemia - hgb 10.8 hct 30.3 MCV high - check iron panel, B12, folate - no need for blood transfusion at this time - monitor CBC elevated LFTs - AST 33 ALT 37, alk phos and bili normal - likely due to fatty liver/etoh - f/u outpt HTN - continue home meds when appropriate, currently normotensive HLD - continue statin GERD - continue PPI med rec pending full code VTE prophy: lovenox Pt with 2 syncopal episodes complicated by concussion with scalp lac, requiring admission for at least 2 midnights stay for monitoring and further evaluation. Quality Stroke Does the patient have a stroke diagnosis?: No VTE Prior VTE?: No VTE Risk Level:: Medical - moderate - high VTE Device Contraindication: Treatment Not Indicated VTE Drug Contraindication: N/A - Med Ordered
[2025-03-10 07:30] LABS: Magnesium 1.8 mg/dL (1.6-2.6)
[2025-03-10 08:01] LABS: Anion Gap 16 (12-20); Blood Urea Nitrogen 30 mg/dL (9-16); Calcium 8.7 mg/dL (8.4-10.2); Carbon Dioxide 22 mmol/L (22-29); Chloride 104 mmol/L (96-108); Creatinine Clr Calc Pharmacy 52.6; Estimated Glomerular Filt Rate 55; Iron 39 mcg/dL (30-160); Percent Iron Saturation 16 % (15-50); Potassium 3.8 mmol/L (3.3-5.1); Sodium 138 mmol/L (135-145); Total Iron Binding Capacity 244 mcg/dL (228-428); Unsaturated Iron Binding 205 ug/dL
[2025-03-10 08:08] LABS: Folate 17.0 ng/mL (> or = 4.0); Vitamin B12 562 pg/mL (200-900)
--- NOTE | 2025-03-10 09:29 | PHA.MEDREC ---
Pharmacy Consult ? Medication Reconciliation Pharmacy has completed the medication reconciliation. Patient is on celecoxib but hasnt started yet
--- NOTE | 2025-03-10 10:30 | PM.CNCAR ---
History of Present Illness History of Present Illness Date of Service: 03/10/25 Requesting physician: Jose L Day Consult reason: other (Syncope) Chief complaint: fall with headstrike Narrative: I was consulted to see Justina in cardiology consultation today for syncopal episode. She is a pleasant 74-year-old female with prior history of hypertension, hyperlipidemia with no prior cardiac history. She was in usual state of health. She says she has been very rushed and stress recently as she is planning to travel to [place] in the coming few days and has been busy packing and has not been hydrating well. Patient yesterday in the night woke up from bed because she had significant cramped and jumped out of bed. She then felt lightheaded and then felt nauseous and walk towards the bathroom and she does not remember what happened but she had passed out. She had struck her head on the floor. The got up and set her up and she passed out again. This was only for few sec. Has been got concerned because there was bleeding and call 911. By time ambulance arrived she is feeling well. She had no bowel bladder incontinence. She has a little bit of tongue bite. No seizure-like activities were noted. Patient has never had prior syncopal episodes. Overnight monitoring has shown no significant abnormalities. EKG shows normal sinus rhythm with poor R-wave progression most likely due to lead placement. She says she feels well now Review of Systems Constitutional: Constitutional: Reports no additional constitutional complaints Eyes: Eyes: Reports no additional eye complaints Cardiovascular: Cardiovascular: Denies chest pain, Denies leg edema, Reports lightheadedness, Reports Loss of Consciousness, Denies palpitations and Denies dyspnea Respiratory: Respiratory: Reports no additional respiratory complaints and Denies dyspnea Gastrointestinal: Gastrointestinal: Reports no additional gastrointestinal complaints Musculoskeletal: Musculoskeletal: Reports no additional musculoskeletal complaints Integumentary/Breasts: Skin/Breast: Reports system reviewed and no additional complaints, except as docu Neurologic: Reports system reviewed and no additional complaints, except as documented Psychiatric: Psychiatric: Reports no additional psychiatric complaints Endocrine: Endocrine: Reports no additional endocrine complaints and Denies palpitations PMFSH Past Medical History Medical History HLD (hyperlipidemia) GERD (gastroesophageal reflux disease) HTN (hypertension) Social History Social History Alcohol intake: current Alcohol intake frequency: 0-2 drinks per day Patient Tobacco Use Status: Never used Tobacco Smoked in Last 30 Days: No Use of substances other than those prescribed or required for medical reasons: No Advance Directives: Yes Advance Directives Information Provided: Yes Advance Directives on File: No Nutrition Risks: No Nutritional Risk Meds Allergies Allergy/AdvReac Type Severity Reaction Status Date / Time lisinopril Allergy Cough Verified 03/10/25 02:09 Active Medications: Current Medications Acetaminophen (Acetaminophen 325 Mg Tablet) 975 mg PO Q6H PRN PRN Reason: Pain, Mild 1-3,fever,headache Last Admin: 03/10/25 06:32 Dose: 975 mg Calcium Carbonate (Calcium Carbonate 750 Mg Tab.Chew) 750 mg PO Q4H PRN PRN Reason: Heartburn Enoxaparin Sodium (Enoxaparin Sodium 40 Mg/0.4 Ml Syringe) 40 mg SUBCUT Q24H [facility] Last Admin: 03/10/25 07:12 Dose: 40 mg Magnesium Hydroxide (Milk Of Magnesia 30 Ml Oral.Susp) 30 ml PO DAILY PRN PRN Reason: Constipation Melatonin (Melatonin 3 Mg Tablet) 6 mg PO BEDTIME PRN PRN Reason: Insomnia Ondansetron HCl (Ondansetron Hcl 4 Mg/2 Ml Vial) 4 mg IVPUSH Q8H PRN PRN Reason: Nausea and Vomiting Oxycodone HCl (Oxycodone Hcl Immed Release 5 Mg Tablet) 5 mg PO Q6H PRN PRN Reason: Pain, Severe (Pain Scale 7-10) Sodium Chloride (0.9 % Sodium Chloride Flush 3 Ml Syringe) 3 ml IVFLUSH QSHIFT [facility] Last Admin: 03/10/25 07:15 Dose: Not Given Tramadol HCl (Tramadol Hcl 50 Mg Tablet) 50 mg PO Q6H PRN PRN Reason: Pain, Moderate(Pain Scale 4-6) Home Medications ?Medication ?Instructions ?Recorded ?Confirmed ?Last Taken ?Type alendronate 70 mg tablet 70 mg PO MO 03/10/25 03/10/25 03/04/25 History calcium carbonate (Calcium 600) 600 mg PO BID 03/10/25 03/10/25 Unknown History chlorthalidone 25 mg tablet 25 mg PO DAILY 03/10/25 03/10/25 03/04/25 History folic acid 1 mg tablet 1 mg PO DAILY 03/10/25 03/10/25 03/04/25 History losartan 100 mg tablet 100 mg PO DAILY 03/10/25 03/10/25 03/04/25 History magnesium 250 mg tablet 250 mg PO DAILY 03/10/25 03/10/25 Unknown History omeprazole 20 mg capsule,delayed 20 mg PO BID 03/10/25 03/10/25 03/04/25 History release simvastatin 40 mg tablet 40 mg PO BEDTIME 03/10/25 03/10/25 03/04/25 History Physical Exam Vital Signs: Vital Signs: Last Vital Signs Temp 98.2 F 03/10/25 08:20 Pulse 97 03/10/25 08:20 Resp 23 H 03/10/25 08:20 BP 130/69 03/10/25 08:20 Pulse Ox 95 03/10/25 08:20 O2 Del Method Room Air 03/10/25 08:20 BMI result Body Mass Index 30.3 Const: General: cooperative, comfortable, no acute distress, alert and awake Nutritional Appearance: obese Orientation/consciousness: patient oriented x3 Limitations: no limitations HEENT: Head: Yes normocephalic and Yes atraumatic Neck: Neck: Yes trachea midline, Yes supple and Yes no JVD Resp: Effort & Inspection: normal respiratory effort Auscultation: clear to auscultation bilaterally Cardio: Jugular venous distension: no JVD Palpation: normal PMI Rate: regular rate Rhythm: regular rhythm Heart sounds: S1 normal heart sound present, S2 normal heart sound present, no click, no gallops, no murmurs and no rubs GI: Auscultation: normal bowel sounds Skin: General skin exam: no rashes or lesions noted Neuro: General: patient oriented x3 and no focal motor deficits Extrem: General: Yes no clubbing, cyanosis or edema Psych: Appearance: grossly normal Objective Labs and Meds 03/10/25 02:55 03/10/25 06:31 Lab results: Laboratory Results - last 24 hr 03/10/25 03/10/25 03/10/25 02:55 04:48 06:31 WBC 7.0 RBC 3.09 L Hgb 10.8 L Hct 30.3 L MCV 98.1 H MCH 35.0 H MCHC 35.6 H RDW 12.8 Plt Count 261 MPV 9.2 L Immature Gran % (Auto) 0.4 Neut % (Auto) 62.5 Lymph % (Auto) 28.3 [place] % (Auto) 7.0 Eos % (Auto) 1.4 Baso % (Auto) 0.4 Lymph # (Auto) 2.0 [place] # (Auto) 0.5 Eos # (Auto) 0.1 Baso # (Auto) 0.0 Abs Immat Gran (auto) 0.03 Absolute Neuts (auto) 4.4 Absolute Nucleated RBC 0.000 Nucleated RBC % (auto) 0.0 PT 10.2 L INR 0.9 Sodium 137 138 Potassium 3.0 L 3.8 D Chloride 102 104 Carbon Dioxide 21 L 22 Anion Gap 17 16 BUN 35 H 30 H Creatinine 1.33 0.98 Estim Creat Clear Calc 38.8 52.6 Estimated GFR 39 55 Random Glucose 98 98 Calcium 9.5 8.7 D Magnesium 1.8 Iron 39 TIBC 244 % Saturation 16 Unsat Iron Binding 205 Total Bilirubin 0.2 AST 33 H ALT 37 H Alkaline Phosphatase 65 Troponin I High Sens < 2.7 < 2.7 Total Protein 6.9 Albumin 4.2 Vitamin B12 562 Folate 17.0 Assessment and Plan (1) Syncope: Qualifiers: Syncope type: unspecified Qualified Code(s): R55 - Syncope and collapse Status: Acute Syncope in this woman appears to be situation only most likely vasovagal related to pain and relative dehydration and/or orthostatic. She had classic symptoms of nausea as well as lightheadedness preceding her syncopal episode. There were no seizure-like activities noted. However she requires further workup given her EKGs which shows poor R-wave progression most likely lead placement to evaluate for any underlying structural heart issues. There was no clinical murmurs suggestive of any significant valvular abnormalities. Her cardiac biomarkers has been negative. I will repeat orthostatic vital signs on her. She says that she is going to go on a trip to [place]. I suggested her that she requires further workup including a head-up tilt-table test and a Holter monitor which probably would not happen before she wants to travel. We discussed about potential risk of traveling after this episode of syncope. She understands. She will discuss with her and decide whether they want to pursue not to travel. Otherwise will set her up for outpatient testing. She can be discharged home today. I have advised potential cause of vasovagal/orthostatic syncope and management of it. Adequate hydration was discussed with her including adequate electrolyte intake. Seeking supine or lying down position when she is lightheaded was discussed with her. She understands and agrees. Will follow up as outpatient. Thank you for allowing me to partake in her care Procedures Date of Service Date of Service: 03/10/25
--- NOTE | 2025-03-10 11:46 | PM.EVENT ---
Event Note Date of Service: 03/10/25 Event Note: Seen and examined. Admitted this morning with syncope, likely vasovagal vs orthostatic hypOtension. Lac to back of head. No arrhythmia detected. Hydrated. Hold Chlorthalidone. check ortho. o/w A/P per H and p from this morning and recommendation from cardiology Time Spent With Patient Time: Total time managing care of this patient today ____ minutes.
--- NOTE | 2025-03-10 11:56 | PM.DS ---
DS: Providers Provider Date of Service: 03/10/25 Date of admission: 03/10/25 05:14 Date of discharge: 03/10/25 Primary care physician: Ervin Cai MD Consults: 03/10/25 06:08 Consult to Cardiology Routine Consulting Provider: [facility] Reason for consultation: syncope x2 Has provider been notified: No DS: Diagnosis Discharge Diagnosis (1) Syncope: Status: Acute DS: Summary Hospital Course Hospital Course: admission hpi Chief Complaint: syncope pt is a 74 yo f with a pmhx significant for HTN, who presented to the ED after a fall, headstrike with syncopal episode x2. the pt reports she was consuming etoh last night and went to bed. woke with a muscle cramp in the L leg adn nausea and went to get out of bed quickly and syncopized. the pt's found her on the ground right after the fall, bleeding from the head and sat her upright. she was responsive and then syncopized again with snoring respirations. she does not recall the first episode but does recall the second. no seizure-like activity witnessed, no urinary incontinence. the pt's called EMS. upon EMS arrival the pt was responsive. she has not had any further episodes. she now had an occipital headache with mild nausea. Hospital course: Patient was observe in the hospital and did not experience any arrhythmia, labs work was noted for hypokalemia with potassium of 3.0 and corrected. She had laceration to back of head. CT showed no acute finding, vitals have been stable. She has been seen by cardiology and suspected of having vasovagal syncope vs possible orthostatic syncpe. Cardiology recommends further testing on outpatient basis. She is planning to go on an trip the in 5 days and is not considering delay at this time for further testing, is aware of risks, cardiology also discussed with her and she will discuss it with further to make a decision. I am advising stoping Chlorthalidone as possible potential contributor of orthostatic hypotension and causing low potassium. She is also advise to have sutures removed in 5 to 7 day Time Attestation Discharge Coordination Time (in mins): 35 Quality: Safe Use of Opioids Does Pt have an Active Cancer Diagnosis on the Problem List?: No Quality: Stroke Does the patient have a stroke diagnosis?: No Physical Exam Vital Signs: Vital Signs: Last Vital Signs Temp 98.2 F 03/10/25 11:11 Pulse 92 03/10/25 11:11 Resp 20 03/10/25 11:11 BP 142/74 H 03/10/25 11:11 Pulse Ox 95 03/10/25 11:11 O2 Del Method Room Air 03/10/25 11:11 BMI result Body Mass Index 30.3 DS: Data Data Completed and Pending Labs on day of discharge: Laboratory Results - last 24 hr 03/10/25 03/10/25 03/10/25 02:55 04:48 06:31 WBC 7.0 RBC 3.09 L Hgb 10.8 L Hct 30.3 L MCV 98.1 H MCH 35.0 H MCHC 35.6 H RDW 12.8 Plt Count 261 MPV 9.2 L Immature Gran % (Auto) 0.4 Neut % (Auto) 62.5 Lymph % (Auto) 28.3 [place] % (Auto) 7.0 Eos % (Auto) 1.4 Baso % (Auto) 0.4 Lymph # (Auto) 2.0 [place] # (Auto) 0.5 Eos # (Auto) 0.1 Baso # (Auto) 0.0 Abs Immat Gran (auto) 0.03 Absolute Neuts (auto) 4.4 Absolute Nucleated RBC 0.000 Nucleated RBC % (auto) 0.0 PT 10.2 L INR 0.9 Sodium 137 138 Potassium 3.0 L 3.8 D Chloride 102 104 Carbon Dioxide 21 L 22 Anion Gap 17 16 BUN 35 H 30 H Creatinine 1.33 0.98 Estim Creat Clear Calc 38.8 52.6 Estimated GFR 39 55 Random Glucose 98 98 Calcium 9.5 8.7 D Magnesium 1.8 Iron 39 TIBC 244 % Saturation 16 Unsat Iron Binding 205 Total Bilirubin 0.2 AST 33 H ALT 37 H Alkaline Phosphatase 65 Troponin I High Sens < 2.7 < 2.7 Total Protein 6.9 Albumin 4.2 Vitamin B12 562 Folate 17.0 Discharge Plan Discharge Anticipated Discharge Date/Time: 03/10/25 11:52 Patient Disposition: Home, Self-Care Discharge Diagnosis: Syncope, Hypokalemia Referrals: Ervin Cai MD [Primary Care Provider, Family Practice] Problems: Syncope; Concussion with loss of consciousness; Laceration of scalp Discharge Medications: Continued alendronate 70 mg tablet 70 mg PO MO simvastatin 40 mg tablet 40 mg PO BEDTIME omeprazole 20 mg capsule,delayed release(DR/EC) 20 mg PO BID folic acid 1 mg tablet 1 mg PO DAILY losartan 100 mg tablet 100 mg PO DAILY calcium carbonate [Calcium 600] 600 mg calcium (1,500 mg) Tablet 600 mg PO BID magnesium 250 mg Tablet 250 mg PO DAILY Discontinued chlorthalidone 25 mg tablet 25 mg PO DAILY Diet: Advance to usual diet Activity on Discharge: As tolerated Stand Alone Forms: Patient Portal Discharge page Print Language: Gabonese Activity Restrictions/Additional Instructions: Thank you for choosing [facility]'s Emergency Department for your care today. Based on your laboratory evaluation, your fainting episode this evening may have been secondary to dehydration. Thankfully your CT head and neck showed no evidence of any skull fracture, cervical spine fracture, or intracranial bleeding. Your evaluation showed no evidence of any acute cardiac, infectious, metabolic, renal, neurologic, or other dangerous cause for your fainting episode. Your fall today did result in a laceration of your scalp. The laceration was repaired with nonabsorbable phuong which will need to be removed in 5-7 days. Please return to the emergency department, go to a local urgent care, or follow-up with your primary care provider for removal of sutures. You may apply bacitracin to the laceration twice daily for the first 2-3 days. Then please keep the area clean and dry, but uncovered and exposed to the air to allow the laceration to heal. While it is perfectly acceptable to allow water to run over the phuong while showering, please do not swim, or submerge the laceration in standing water until the phuong are removed. You may take alternating (staggered) doses of ibuprofen 600mg and Tylenol 1000mg every 4 hours as needed for any additional pain. You can apply ice for 20 minutes every hour to reduce swelling. Please return to the emergency department if you develop any uncontrollable bleeding, re-opening of your wound, redness advancing >1-2 cm away from your wound, or white milky discharge from your wound. Please also return if you experience any other new or worsening symptoms or concerns. Your presentation today is also concerning for a possible concussion. A concussion is a bruise to your brain which may cause nausea, vomiting, headache, and difficulty concentrating/focusing. Similar to any other bruising, you must rest the injured area to prevent recurrent symptoms, reinjury, or other complications. In order to rest your brain, please avoid use of electronics such as cell phones, iPads, or TVs. Please avoid highly complex mental tasks/projects that require intense focus or concentration, and please avoid strenuous physical activity. Once your symptoms have resolved, you may slowly increase your activity level. If symptoms return please discontinue the activity which caused the recurrence of symptoms for 48 hours, before again attempting the same activity. You may not participate in any activities that are a high risk for recurrent head injury until you've returned to your baseline activity level without recurrence of your symptoms, plus one additional week. Please follow up with your primary care physician for re-evaluation, additional management of your symptoms, return to activity clearance, and continued preventative care. If you do not have a primary care physician, please call the [facility] at [phone] to establish a new primary care physician. While waiting to establish your new primary care physician, you can call our Walk[facility] at [phone] for non-emergency needs. Care Plan Goals: recovery from syncope Health Concerns: syncope low potassium laceration to scalp Plan of Treatment: hold chlorthalidone until after you see your primary care physician follow up with cardiology for more testing regarding syncope surgical removal as stated above Assessment: see above Patient Instructions: Syncope (ED), Concussion (ED), Staple Care (ED)
== END 2025-03-10 15:25 | disposition home or self-care (01) | DRG 641 ==
LOC: HO.ED 04:45 → HO.EDOVER 05:18
PROVIDERS: Physician Assistant; Admitting Provider Physician Assistant; Emergency Provider Emergency Medicine; PCP Family Medicine; Visit Provider Internal Medicine
DX: E87.6 Hypokalemia (principal); S06.0XAA Concussion with loss of consciousness status unknown, initial encounter; R55 Syncope and collapse; K76.0 Fatty (change of) liver, not elsewhere classified; E78.5 Hyperlipidemia, unspecified; K21.9 Gastro-esophageal reflux disease without esophagitis; S01.01XA Laceration without foreign body of scalp, initial encounter; W19.XXXA Unspecified fall, initial encounter; Z79.899 Other long term (current) drug therapy
CPT/HCPCS: 36415; 70450; 72125; 80048; 80053; 82607; 82746; 83540; 83735; 84484; 85025; 85610; 93005; 99285; J1650; J2004; J2405; J7120

== ENCOUNTER → 2025-03-10 02:16 | Outpatient (BNV) | payer OTHER, MEDICARE, SELFPAY | PROVIDERS: Emergency Provider Emergency Medicine; PCP Family Medicine; Visit Provider Specialist | DX: M47.812 Spondylosis without myelopathy or radiculopathy, cervical region (principal); S09.90XA Unspecified injury of head, initial encounter | CPT/HCPCS: 70450; 72125 ==

== ENCOUNTER → 2025-03-10 05:14 | Outpatient (BNV) | payer OTHER, MEDICARE, SELFPAY | PROVIDERS: Admitting Provider Physician Assistant; Emergency Provider Emergency Medicine; PCP Family Medicine; Visit Provider Internal Medicine Cardiovascular Disease | DX: R55 Syncope and collapse (principal) | CPT/HCPCS: 93010; 99222 ==

== ENCOUNTER → 2025-03-10 05:14 | Outpatient (BNV) | payer OTHER, MEDICARE, SELFPAY | PROVIDERS: Admitting Provider Physician Assistant; Emergency Provider Emergency Medicine; PCP Family Medicine; Visit Provider Internal Medicine | DX: R55 Syncope and collapse (principal); S06.0X9A Concussion with loss of consciousness of unspecified duration, initial encounter; S01.01XA Laceration without foreign body of scalp, initial encounter; E87.6 Hypokalemia; D64.9 Anemia, unspecified; E66.811 Obesity, class 1 | CPT/HCPCS: 99499 ==

== ENCOUNTER → 2025-04-04 07:56 | Outpatient (REF) | payer MEDICARE, OTHER, SELFPAY ==
--- NOTE | 2025-04-04 08:02 | CA_ITS ---
Transthoracic Echocardiogram Patient (Last, First, Middle): Justina Heller Ann Gender: F Date of : 1950 Age: 74 Procedure Date: 04/04/2025 Procedure Type: Transthoracic Echocardiogram Location: OP Height: 162.56 cm Weight: 79.38 kg BSA: 1.85 m2 Heart Rate: bpm BP: 134 / 82 mmHg Business Owner/Engineer: TO Referring MD: Elvis Kaur MD In File Operator: Elvis Kaur MD Symptoms: I10 - Essential (primary) hypertension Study Quality: Fair/Contrast ECG Rhythm: Sinus Conclusions: - 1. Normal LV ejection fraction 55-60% with impaired relaxation filling pattern 2. Cardiac valvular Dopplers within normal limits with mild calcific changes noted of mitral annulus 3. Normal RV systolic pressure 4. No gross pericardial effusion Findings Procedure Information Contrast agent, definity, is being given per protocol without apparent complications. Left Ventricle Normal left ventricular size, thickness, and systolic function. The visually estimated ejection fraction is between 55-60%. Spectral Doppler is indicative of an impaired relaxation filling pattern. Right Ventricle Normal right ventricular cavity size and systolic function. Atria The left atrium is likely dilated. There is no evidence of interatrial shunt. The right atrium is normal in size. Aortic Valve The aortic valve structure and function is likely normal. There is no aortic valve stenosis. There is no aortic valve regurgitation. Mitral Valve There is mild anterior and posterior mitral leaflet thickening. There is mild mitral annular calcification. There is trace mitral valve regurgitation. There is no mitral valve stenosis. Pulmonic Valve The pulmonic valve was not well visualized. Tricuspid Valve Likely normal tricuspid valve structure and function. There is trace tricuspid valve regurgitation. The right ventricular systolic pressure is normal. The right ventricular systolic pressure is 22 mmHg. Normal right atrial pressure. There is no evidence of pulmonary hypertension. Great Vessels All visible segments of the aorta are normal in size. The pulmonary artery was not well visualized. There is no dilatation of the ascending aorta measuring 3.30 cm. Venous The inferior vena cava is normal in size and collapses greater than 50% with inspiration. Pericardium/Pleural There is no evidence of pericardial effusion. Prior Study Comparison No prior study available for comparison. Measurements 2D Linear Measurements IVSd: 0.94 0.6-0.9/0.6-1.0 cm LVIDd: 4.00 3.9-5.3/4.2-5.9 cm LVIDd Index: 2.16 2.4-3.2/2.2-3.1 cm/m2 LVIDs: 2.71 2.0-3.6 cm LVPWd: 0.77 0.7-1.1 cm LA Diam: 3.90 2.7-3.8/3.0-4.0 cm LAIDs Index: 2.11 1.5-2.3 cm/m2 LV Mass: 126.75 67-162/88-224 g LV Mass Index: 68.51 43-95/49-115 g/m2 LVOT Diam: 2.10 3.0+(-)1.3 cm 2D Systolic Function EF 4C: 58.60 >55% EF 2C: 60.60 >55% EF BiP: 59.30 >55% Mitral Valve MV Pk E: 0.62 MV PK A: 0.87 MV Decel Time: 222.00 E/A: 0.70 E'Lateral: 5.44 E'Medial: 4.68 E/E' Med: 13.30 E/E' Lat: 11.40 PHT: 65.00 MVA PHT: 3.38 Decel [place]: 2.80 Aortic Valve AoV Pk Bernardo: 0.98 AoV Mn Bernardo: 0.73 AoV VTI: 0.20 AoV Pk Grad: 4.00 Aov Mn Grad: 2.00 COURTNEY Cont.VTI: 3.22 LVOT LVOT Pk Bernardo: 0.91 LVOT Mn Bernardo: 0.58 LVOT VTI: 0.19 LVOT Pk Grad: 3.00 LVOT Mn Grad: 2.00 LVOT Diam: 2.10 LVOT Area: 3.46 Diastolic Function MV Pk E: 0.62 MV Pk A: 0.87 E/A: 0.70 E'Medial: 4.68 E/E' Med: 13.30 E' Laterial: 5.44 E/E' Lat: 11.40 Right Ventricle TAPSE (mm): 16.50 TVS' Bernardo: 10.10 Tricuspid Valve TR Pk Bernardo: 2.16 TR Pk Grad: 19.00 RA Press: 3.00 RVSP: 22.00 Great Vessels Aorta Sinus of Valsalva: 3.68 2.0-3.5 cm Ao Asc: 3.30 2.1-3.4 cm Ao Arch: 3.20 Updated in Other Vendor System with Status of Final Elvis Karu MD electronically signed on 04/05/2025 12:52:20 PM with status of Final
--- NOTE | 2025-04-04 08:02 | HM_ITS ---
* Total monitoring time 14 days. * Underlying rhythm is sinus with an average rate of 89/Min. About 18% of the time, rate > 100/Min. * Rare supraventricular ectopy. * Rare ventricular ectopy. * No significant pauses or high-grade AV blocks. * No patient markers or diary events. MTDD
== END ==
LOC: HO.CARD 07:56
PROVIDERS: PCP Family Medicine; Visit Provider Internal Medicine Cardiovascular Disease
DX: I10 Essential (primary) hypertension (principal); R55 Syncope and collapse
CPT/HCPCS: 93246; 93306; Q9957

== ENCOUNTER → 2025-04-04 08:02 | Outpatient (BNV) | payer MEDICARE, OTHER, SELFPAY | PROVIDERS: PCP Family Medicine; Visit Provider Internal Medicine Cardiovascular Disease | DX: I34.81 Nonrheumatic mitral (valve) annulus calcification (principal) | CPT/HCPCS: 93306 ==